=== PATIENT | female | born 1950 | race African-American/Black ===

== ENCOUNTER 2017-05-23 12:20 | Inpatient (IN) ==
--- NOTE | 2017-05-23 13:52 | XRay Report ---
Exam: XR chest 1V portable Date: 05/23/2017 1:26 PM Indication: Shortness of breath Comparison: 04/15/2016 Technical:AP portable Findings: Cardiomegaly is present. No obvious infiltrate or effusion present. Mild interstitial thickening and atelectatic change in the basilar regions with suggestion of small tiny left pleural effusion. Impression: 1. Cardiomegaly 2. Tiny left effusion and underlying bibasilar atelectatic change and/or edema. PROCEDURE INTERPRETED AT [facility] DEPARTMENT OF RADIOLOGY Final Report Signed by: Dr. Micheal Mccullough
--- NOTE | 2017-05-23 13:54 | EKG Report ---
Stationary ECG Study [facility] ER Test Date: 05/23/2017 1:52:49 PM Pat Name: VALE AZEVEDO Department: Room: Gender: F Multifocal Button Generator: : 1950 Requested by: Caleb Rios Order Number: [id number] Reading MD: MORGAN PATTEN Intervals [place] Rate: 75 P: 69 MD: 198 QRS: 6 QRSD: 88 T: 58 QT: 393 QTc: 422 Interpretive Statements SINUS RHYTHM ANTEROSEPTAL MYOCARDIAL INFARCTION, OF INDETERMINATE AGE Electronically Signed On 05-23-17 17:42:38 CDT by MORGAN PATTEN [email or web address]
--- NOTE | 2017-05-23 14:05 | Emergency Department Note ---
James Campoverde Rolonda, am scribing for, and in the presence of, Caleb Carmona MD 13:35. Mathew Campoverde Phillip K, MD, personally performed the services described in this documentation, ascribed by Heaven Ramirez in my presence, and it is both accurate and complete [id number] . Arrival - Arrival Chief Complaint: Non-Specific ED Nursing Triage Note: pt to er 11 via ems coming from [facility] with c/o having low H & H. pt has blood drawn and results given to [place] on at 0906. and is coming today for it. Mode of Arrival: Stretcher Limitations: No Limitations Source: Patient, Old Records Reviewed, RN Notes Reviewed Time Seen by Provider: 05/23/17 13:14 - History of Present Illness HPI Narrative: Pt is a 66 y/o female who was transferred to the ED from [facility] via EMS for further evaluation of low H&H with an onset of few hours ago. She had blood work done on 05/22/2017 at [place] with results of H&H being 6 and 20 which prompted her visit to the ED. Pt denies any pain and SOB. Pt has a PMHx of CVA, Anemia, DM, ESRD and dialyze on ,W,F. No other complaint/pain in ED. Onset (ago): hour(s) Consistency: constant Severity: mild Severity scale (1-10): 3 Allergies/Adverse Reactions: Allergies Allergy/AdvReac Type Severity Reaction Status Date / Time acetaminophen [From [place]] Allergy RASH Verified 05/23/17 12:37 hydrocodone [From [place]] Allergy RASH Verified 05/23/17 12:37 Hydromorphone [From Dilaudid] AdvReac Nausea Verified 05/23/17 12:37 Home Medications: Home Medications Medication Instructions Recorded Confirmed Type Clopidogrel [Plavix] 75 mg PO DAILY tablet 05/14/15 07/29/16 Rx Diltiazem Tab [Cardizem Tab] 60 mg PO QID tablet 05/14/15 07/29/16 Rx predniSONE TAB [PredniSONE] 10 mg PO DAILY tablet 05/14/15 07/29/16 Rx Cholestyramine/Aspartame [Questran 4 gm PO BID 01/22/16 07/29/16 History Light] Famotidine 20 mg PO BID 01/22/16 07/29/16 History Insulin Regular, Human [NovoLIN R] See Protocol SUBCUT ACHS 01/22/16 06/10/16 History Escitalopram Oxalate 20 mg PO DAILY 07/29/16 07/29/16 History Promethazine Tab [Phenergan Tab] 25 mg PO Q4H PRN 07/29/16 07/29/16 History traMADol TAB [Ultram] 100 mg PO Q6H PRN 07/29/16 07/29/16 History Review of System - Review of System 12 point system: reviewed and no additional remarkable complaints except as stated - Review of System Constitutional: Absent: chills, fever Respiratory: Absent: cough, respiratory distress Cardiovascular: Absent: chest pain, dyspnea on exertion Gastrointestinal: Absent: abdominal pain, nausea, vomiting, diarrhea Musculoskeletal: Absent: back pain, neck pain Medical,Surgical,& Family Hx - Medical History Cardio: History of: Cardiac Dysrhythmia (ATRIAL FIBRILLATION), Hypertension, PVD Comment Only: Cardiovascular Problems (A FIB) Psychological: History of: Anxiety Disorders, Depression Neurology: History of: Cerebrovascular Accident, Peripheral Neuropathy No history of: Seizures HEENT: History of: Eye Problem (BLIND) Endocrine: History of: Diabetes Mellitus (IDDM), Diabetes Mellitus (NIDDM), Dyslipidemia Rheumatology: History of;: Gout (LEFT FOOT), Rheumatoid Arthritis (RIGHT HAND) Renal: History of: Dialysis (mon and mon), Renal Failure Gastrointestinal: History of: GI Problems (CONSTIPATION) Musculoskeletal: History of: Amputation (LEFT ABOVE KNEE AMP, RIGHT BELOW KNEE) Hematology: History of: Bleeding Problems (HEMOPHYLLIAC) Other: History of: Eczema, Skin Problems (Decubitus ulcers) - Surgical History Cardiac Surgeries: Sugical HX of: Cardiac Surgery (LEFT LEG ARTERIAL SURGERY) HEENT Surgeries: Surgical HX of: Eye Surgery (CATARACT BILLTERAL) Abdominal Surgeries: Surgical HX of: Abdominal Surgery, Appendectomy Reproductive Surgeries: Surgical HX of;: Section (1), Gynecologic Surgery, Hysterectomy Orthopedic Surgeries: Surgical HX of;: Implanted Devices (FISTULA IN LEFT AND RIGHT LEG LEFT NOT FUNCTIONAL) - Family History Family History: Reports;: Family Anesthesia Reaction (DAUGHTER- TACHYCARDIA), Family Cancer, Family Diabetes (MOTHER AND FATHER), Family Heart Disease, Family Hypertension (FATHER), Family Stroke (DAD MOTHER) - Social History Smoking Status: Never smoker Frequency of Alcohol Use: None Type of Drug Use: None Exam Vital Signs: Vital Signs Temperature 97.5 F L 05/23/17 12:26 Pulse Rate 74 05/23/17 12:26 Respiratory Rate 17 05/23/17 12:41 Blood Pressure 164/63 05/23/17 12:26 O2 Sat by Pulse Oximetry 95 05/23/17 12:26 - General General appearance: alert, in no apparent distress - Head Head exam: Present: atraumatic, normocephalic - Eye Eye exam: Present: normal appearance, PERRL, EOMI - ENT ENT exam: Present: mucous membranes moist. Absent: mucous membranes dry - Neck Neck exam: Present: full ROM. Absent: tenderness - Chest Chest inspection: Present: symmetric chest wall rise. Absent: tenderness - Respiratory Respiratory exam: Present: normal lung sounds bilaterally. Absent: rales - Cardiovascular Cardiovascular exam: Present: regular rate, normal rhythm, normal heart sounds. Absent: bradycardia - Abdominal Exam Abdominal exam: Present: soft, normal bowel sounds. Absent: tenderness - Rectal Exam Rectal exam: Present: heme (+) stool - Extremities Exam Extremities exam: Present: other (left leg AKA, right leg BKA) - Back Exam Back exam: Present: full ROM. Absent: tenderness - Neurological Exam Neurological exam: Present: alert, oriented X3, CN II-XII intact, other (left sided facial weakness; forehead sparing) - Psychiatric Psychiatric exam: Present: normal affect, normal mood - Skin Skin exam: Present: warm, dry, intact, normal color. Absent: rash Course Course Narrative: Patient discussed with the hospitalist Results - Labs CBC & BMP: 05/23/17 14:03 05/23/17 14:03 Lab Results: I have reviewed the patients labs - EKG EKG results: interpreted by EVA, sinus rhythm (Old anterior septal MN) - Diagnostic Findings Procedure: Chest x-ray: report reviewed by me (1. Cardiomegaly 2. Tiny left effusion and underlying bibasilar atelectatic change and/or edema.) Disposition Clinical Impression: Anemia, Heme positive stool Case discussed with: patient Disposition: Still a Patient Condition: Guarded Additional Instructions: Admit to the hospitalist
[2017-05-23 14:18] LABS: Basophils % 0.2 % (0.0-0.8); Eosinophils # 0.1 10*3/uL (0.0-0.87); Hematocrit 20.3 VOL% (35.7-47.0); Immature Granulocytes % 0.6 %; Immature Granulocytes Absolute 0.03 #; Lymphocytes # 1.9 10*3/uL (1.4-4.0); Lymphocytes % 36.7 % (21.3-54.2); Mean Corpuscular HGB Conc 31.5 GM/DL (32-36); Mean Corpuscular Hemoglobin 31 PG (27-34); Mean Corpuscular Volume 97.1 FL (87-102); Mean Platelet Volume 10.8 FL (9.6-12.0); Monocytes # 0.3 10*3/uL (0.11-0.8); Monocytes % 4.9 % (1.7-12.7); NRBC # 0.09 10*3/uL; Neutrophils # 2.8 10*3/uL (1.4-7.4); Neutrophils % 55.6 % (38.7-73.9); Platelet Count 128 T/CUMM (130-400); Red Blood Count 2.09 MC/CUMM (3.8-5.5); Red Cell Distribution Width 19.9 % (9.3-17.3); White Blood Count 5.1 T/CUMM (4-12)
[2017-05-23 14:28] LABS: Hemoglobin 6.4 GM/DL (12.0-16.0)
[2017-05-23 14:43] LABS: Alanine Aminotransferase 21 U/L (13-56); Albumin 2.8 G/DL (3.4-5.0); Alkaline Phosphatase 137 U/L (45-117); Aspartate Amino Transferase 28 U/L (0-37); Bilirubin,Total < 0.39 MG/DL (0.2-1.0); Blood Urea Nitrogen 31 MG/DL (7-18); Glucose 172 MG/DL (74-106); Magnesium 2.5 MG/DL (1.8-2.4); Osmolality,Calculated 280.1 MOS/KG (273-304); Potassium 3.7 MMOL/L (3.5-5.1); Sodium 135 MMOL/L (136-145); Total Protein 6.5 G/DL (6.4-8.3)
[2017-05-23] MEDS ORDERED: SODIUM CHLORIDE 0.9% 250 ML IV PRN (14:49)
--- NOTE | 2017-05-23 15:56 | Hospitalist History & Physical ---
<Brinda Grayda - Last Filed: 05/23/17 15:46> Assessment and Plan (1) Anemia Status: Acute Assessment and plan: Hemoglobin and hematocrit were noted at 6.4 and 20.3. The patient is chronically anemic secondary to her end-stage renal disease; however the patient does take Plavix which could possibly attributed to the noted decrease in her blood levels. We will hold Plavix. We will consult nephrology to evaluate and advise regarding transfusion to prevent fluid volume overload. Current Visit: Yes (2) Diabetes mellitus Status: Chronic Assessment and plan: We will start Accu-Cheks with sliding scale coverage; obtain hemoglobin A1c, and monitor. Current Visit: No Qualifiers: Diabetes mellitus type: type 2 Diabetes mellitus complication detail: with other kidney complication (3) End stage renal disease on dialysis Problem details: No acute indication for HD at this time. Status: Chronic Assessment and plan: Consult nephrology to manage. Current Visit: No (4) PEG (percutaneous endoscopic gastrostomy) status Status: Acute Assessment and plan: Tube feedings will remain on hold until GI evaluation. Current Visit: Yes (5) Heme positive stool Status: Acute Assessment and plan: Heme-positive stools noted; we will hold Plavix. We will consult GI to evaluate. Will start PPIs. Current Visit: Yes History of Present Illness Chief complaint: Anemia History of present illness: This is a chronically ill 66-year-old female that presented to the ED at [facility] this afternoon from [facility] for the evaluation of anemia. The patient has a very complex medical history significant for: Cerebrovascular accident, anemia, diabetes mellitus, end-stage renal disease, hypertension, peripheral vascular disease, atrial fibrillation, anxiety disorder, depression, peripheral neuropathy, gouty arthritis, chronic constipation, dysphasia, chronic multiple decubitus ulcerations. The patient has a surgical history significant for: Right below the knee amputation, left [id number] amputation, bilateral cataract removal , appendectomy, percutaneous gastrostomy tube placement, hysterectomy, section, and arteriovenous graft creation. Apparently, the patient had labs drawn at the custodial facility on yesterday. The facility received the results today and her hemoglobin was noted at 6.4/20.3. The patient was was assessed at the time of ED presentation; labs were obtained. Hematology panel reported white blood cell count of 5.1, hemoglobin 6.4, hematocrit 20.3, platelet count 128. Chemistry panel reported a sodium at 135, potassium 3.7, chloride 95, carbon dioxide 31, anion gap 12.7, BUN 31, creatinine 2.80, magnesium 2.5, total bilirubin less than 039, alkaline phosphatase 137, albumin 2.8, AST 28, ALT 21. Chest x-ray reported cardiomegaly and tiny left effusion and underlying by basilic atelectatic change and/or edema. After brief discussion with both Dr. Carmona and Dr. Callahan, the patient will be admitted to the hospitalist services for continuation of care. We will consult nephrology to assist in the management of her hemodialysis during the clinical encounter. Home Medications Medication Instructions Recorded Confirmed Type Cholestyramine/Aspartame [Questran 4 gm PER TUBE DAILY PRN 01/22/16 05/23/17 History Light] Famotidine 20 mg PER TUBE BID 01/22/16 05/23/17 History Insulin Regular, Human [NovoLIN R] See Protocol SUBCUT ACHS 01/22/16 05/23/17 History Promethazine Tab [Phenergan Tab] 25 mg PER TUBE Q4H PRN 07/29/16 05/23/17 History traMADol TAB [Ultram] 50 mg PER TUBE Q6H PRN 07/29/16 05/23/17 History Acetaminophen Tab [Tylenol Tab] 325 mg PER TUBE Q4H PRN 05/23/17 05/23/17 History Albuterol/Ipratropium Neb [Duoneb] 3 ml RESP TX RT Q4H PRN 05/23/17 05/23/17 History Clopidogrel [Plavix] 75 mg PER TUBE DAILY 05/23/17 05/23/17 History Diltiazem Tab [Cardizem Tab] 60 mg PER TUBE Q6H 05/23/17 05/23/17 History Escitalopram Oxalate 20 mg PER TUBE DAILY 05/23/17 05/23/17 History Furosemide Tab [Lasix Tab] 20 mg PER TUBE BID 05/23/17 05/23/17 History Potassium Chloride 10 meq PER TUBE DAILY 05/23/17 05/23/17 History predniSONE TAB [PredniSONE] 10 mg PER TUBE DAILY 05/23/17 05/23/17 History Allergies Allergy/AdvReac Type Severity Reaction Status Date / Time acetaminophen [From [place]] Allergy RASH Verified 05/23/17 12:37 hydrocodone [From [place]] Allergy RASH Verified 05/23/17 12:37 Hydromorphone [From Dilaudid] AdvReac Nausea Verified 05/23/17 12:37 Medical,Surgical,& Family Hx - Medical History Cardio: History of: Cardiac Dysrhythmia (ATRIAL FIBRILLATION), Hypertension, PVD Comment Only: Cardiovascular Problems (A FIB) Psychological: History of: Anxiety Disorders, Depression Neurology: History of: Cerebrovascular Accident, Peripheral Neuropathy No history of: Seizures HEENT: History of: Eye Problem (BLIND) Endocrine: History of: Diabetes Mellitus (IDDM), Diabetes Mellitus (NIDDM), Dyslipidemia Rheumatology: History of;: Gout (LEFT FOOT), Rheumatoid Arthritis (RIGHT HAND) Renal: History of: Dialysis (mon and mon), Renal Failure Gastrointestinal: History of: GI Problems (CONSTIPATION) Musculoskeletal: History of: Amputation (LEFT ABOVE KNEE AMP, RIGHT BELOW KNEE) Hematology: History of: Bleeding Problems (HEMOPHYLLIAC) Other: History of: Eczema, Skin Problems (Decubitus ulcers) - Surgical History Cardiac Surgeries: Sugical HX of: Cardiac Surgery (LEFT LEG ARTERIAL SURGERY) HEENT Surgeries: Surgical HX of: Eye Surgery (CATARACT BILLTERAL) Abdominal Surgeries: Surgical HX of: Abdominal Surgery, Appendectomy Reproductive Surgeries: Surgical HX of;: Section (1), Gynecologic Surgery, Hysterectomy Orthopedic Surgeries: Surgical HX of;: Implanted Devices (FISTULA IN LEFT AND RIGHT LEG LEFT NOT FUNCTIONAL) - Family History Family History: Reports;: Family Anesthesia Reaction (DAUGHTER- TACHYCARDIA), Family Cancer, Family Diabetes (MOTHER AND FATHER), Family Heart Disease, Family Hypertension (FATHER), Family Stroke (DAD MOTHER) - Social History Smoking Status: Never smoker Frequency of Alcohol Use: None Type of Drug Use: None 12 point system: reviewed and no additional remarkable complaints except as stated Exam - Constitutional Vitals: Period Temp Pulse Resp BP Sys/Jacinto Pulse Ox Last 24 Hr 97.5 F-97.5 F 74-74 17-17 164-164/63-63 95 General appearance: normal weight, no acute distress - Head Head exam: Present: normal inspection, normocephalic, atraumatic - Eye Eye exam: Present: EOMI. Absent: conjunctival injection Pupils: Present: IFTIKHAR, normal accommodation - ENT ENT exam: Present: normal exam, normal external ear exam, normal oropharynx - Neck Neck exam: Present: normal inspection. Absent: lymphadenopathy, meningismus, thyromegaly - Respiratory Respiratory exam: Present: clear to auscultation bilaterally. Absent: rales, rhonchi, stridor, wheezes - Cardiovascular Cardiovascular exam: Present: regular rate and rhythm. Absent: carotid bruit, diastolic murmur, gallop, JVD, rubs, systolic murmur - GI/Abdominal GI/Abdominal exam: Present: normal bowel sounds, soft - Extremities Exam Extremities exam: Present: other (Bilateral amputation noted; left upper extremity contractures) - Back Exam Back exam: Present: normal inspection - Neurological Exam Neurological exam: Present: alert, other (Nonverbal) - Psychiatric Psychiatric exam: Present: normal affect - Skin Skin exam: Present: normal color, warm, dry Results - Labs CBC & BMP: 05/23/17 14:03 05/23/17 14:03 Lab Results: I have reviewed the past 24 hour labs <Leona Callahan - Last Filed: 05/23/17 16:58> History of Present Illness History of present illness: Patient seen and examined independently of BRI Gray, agree with history, assessment and plan as documented. 66 y/o AAF with ESRD admitted with anemia discovered on routine labs. Per reports patient is heme occult positive, not seeing this in the system. Will order FOBT. Monitor H/H. Will transfuse one unit overnight. Recheck H/H. Possibly further transfusions on HD. Nephrology consulted. Exam - Constitutional Vitals: Period Temp Pulse Resp BP Sys/Jacinto Pulse Ox Last 24 Hr 97.5 F-98.4 F 74-76 - 164-166/63-63 95-100 Results - Labs CBC & BMP: 05/23/17 14:03 05/23/17 14:03
[2017-05-23 16:24] LABS: Band Neutrophils 1 % (0-10); Eosinophils 1 % (0-10); Lymphocytes 31 % (20-55); Nucleated Red Blood Cells 3 (0-5); Platelet Estimate Normal; Polychromasia Slight; Segmented Neutrophils 61 % (50-85); Total Cells Counted 100
[2017-05-23] MEDS ORDERED: ONDANSETRON 4 MG/2 ML VIAL IV PRN (18:51)
[2017-05-23] MEDS ORDERED: traMADol 50 MG TABLET PER TUBE PRN (18:51)
[2017-05-23] MEDS ORDERED: CHOLESTYRAMINE/ASPARTAME 4 GM PACK PER TUBE PRN (18:51)
[2017-05-23] MEDS ORDERED: PROMETHAZINE 25 MG TABLET PER TUBE PRN (18:51)
[2017-05-23] MEDS ORDERED: DOCUSATE SODIUM 100 MG CAPSULE PO PRN (18:51)
[2017-05-23] MEDS ORDERED: LACTULOSE 20 GM/30 ML UDCUP PO PRN (18:51)
[2017-05-23] MEDS ORDERED: ALBUTEROL/IPRATROPIUM 3 ML NEB RESP TX PRN (18:51)
[2017-05-23] MEDS ORDERED: ACETAMINOPHEN 325 MG TABLET PER TUBE PRN (18:51)
[2017-05-23] MEDS ORDERED: PANTOPRAZOLE INJ 200 MG in SODIUM CHLORIDE 0.9% 250 ML IV SCH (20:00)
[2017-05-23] MEDS: DILTIAZEM 60 MG TABLET PO SCH (20:30)
[2017-05-23] MEDS: FUROSEMIDE 20 MG TABLET PER TUBE SCH (23:18)
[2017-05-23] MEDS: FAMOTIDINE 20 MG TABLET PER TUBE SCH (23:19)
[2017-05-24] MEDS: DILTIAZEM 60 MG TABLET PO SCH ×4 (00:30→18:19)
[2017-05-24 05:25] LABS: Basophils % 0.4 % (0.0-0.8); Eosinophils # 0.3 10*3/uL (0.0-0.87); Eosinophils % 3.9 % (0.00-10.9); Hemoglobin 8.9 GM/DL (12.0-16.0); Immature Granulocytes % 0.6 %; Immature Granulocytes Absolute 0.04 #; Lymphocytes # 2.1 10*3/uL (1.4-4.0); Lymphocytes % 31.2 % (21.3-54.2); Mean Corpuscular HGB Conc 31.8 GM/DL (32-36); Mean Corpuscular Hemoglobin 29 PG (27-34); Mean Corpuscular Volume 90.9 FL (87-102); Mean Platelet Volume 10.7 FL (9.6-12.0); Monocytes # 0.7 10*3/uL (0.11-0.8); Monocytes % 9.5 % (1.7-12.7); NRBC # 0.04 10*3/uL; Neutrophils # 3.7 10*3/uL (1.4-7.4); Neutrophils % 54.4 % (38.7-73.9); Platelet Count 264 T/CUMM (130-400); Red Blood Count 3.08 MC/CUMM (3.8-5.5); Red Cell Distribution Width 24.6 % (9.3-17.3); White Blood Count 6.9 T/CUMM (4-12)
[2017-05-24 05:45] LABS: Anisocytosis 1+; Hypochromasia 1+; Microcytosis 1+; Platelet Estimate Normal; Polychromasia Few
[2017-05-24 06:01] LABS: Calcium 9.2 MG/DL (8.5-10.1); Magnesium 2.6 MG/DL (1.8-2.4); Osmolality,Calculated 280.8 MOS/KG (273-304); Potassium 3.5 MMOL/L (3.5-5.1)
--- NOTE | 2017-05-24 09:31 | Nephrology Consult Note ---
History of Present Illness Chief complaint: End-stage renal disease, anemia History of present illness: Ms. Lynch is a 66 year old female with multiple medical problems to include diabetes end-stage renal disease history of peripheral vascular disease decubiti anemia atrial fibrillation. The patient is a resident of a local nursing facility and had evidence of anemia by blood drawn yesterday. She has been admitted for further evaluation and treatment of anemia. Her last hematocrit was noted to be 28. Nephrology is been consulted for renal issues. No fevers or chills. Home Medications Medication Instructions Recorded Confirmed Type Cholestyramine/Aspartame [Questran 4 gm PER TUBE DAILY PRN 01/22/16 05/23/17 History Light] Famotidine 20 mg PER TUBE BID 01/22/16 05/23/17 History Insulin Regular, Human [NovoLIN R] See Protocol SUBCUT ACHS 01/22/16 05/23/17 History Promethazine Tab [Phenergan Tab] 25 mg PER TUBE Q4H PRN 07/29/16 05/23/17 History traMADol TAB [Ultram] 50 mg PER TUBE Q6H PRN 07/29/16 05/23/17 History Acetaminophen Tab [Tylenol Tab] 325 mg PER TUBE Q4H PRN 05/23/17 05/23/17 History Albuterol/Ipratropium Neb [Duoneb] 3 ml RESP TX RT Q4H PRN 05/23/17 05/23/17 History Clopidogrel [Plavix] 75 mg PER TUBE DAILY 05/23/17 05/23/17 History Diltiazem Tab [Cardizem Tab] 60 mg PER TUBE Q6H 05/23/17 05/23/17 History Escitalopram Oxalate 20 mg PER TUBE DAILY 05/23/17 05/23/17 History Furosemide Tab [Lasix Tab] 20 mg PER TUBE BID 05/23/17 05/23/17 History Potassium Chloride 10 meq PER TUBE DAILY 05/23/17 05/23/17 History predniSONE TAB [PredniSONE] 10 mg PER TUBE DAILY 05/23/17 05/23/17 History Allergies Allergy/AdvReac Type Severity Reaction Status Date / Time acetaminophen [From [place]] Allergy RASH Verified 05/23/17 12:37 hydrocodone [From [place]] Allergy RASH Verified 05/23/17 12:37 Hydromorphone [From Dilaud[place]] AdvReac Nausea Verified 05/23/17 12:37 Medical,Surgical,& Family Hx - Medical History Cardio: History of: Cardiac Dysrhythmia (ATRIAL FIBRILLATION), Hypertension, PVD Comment Only: Cardiovascular Problems (A FIB) Psychological: History of: Anxiety Disorders, Depression Neurology: History of: Cerebrovascular Accident, Peripheral Neuropathy No history of: Seizures HEENT: History of: Eye Problem (BLIND) Endocrine: History of: Diabetes Mellitus (IDDM), Diabetes Mellitus (NIDDM), Dyslipidemia Rheumatology: History of;: Gout (LEFT FOOT), Rheumatoid Arthritis (RIGHT HAND) Renal: History of: Dialysis (mon and mon), Renal Failure Gastrointestinal: History of: GI Problems (CONSTIPATION) Musculoskeletal: History of: Amputation (LEFT ABOVE KNEE AMP, RIGHT BELOW KNEE) Hematology: History of: Bleeding Problems (HEMOPHYLLIAC) Other: History of: Eczema, Skin Problems (Decubitus ulcers) - Surgical History Cardiac Surgeries: Sugical HX of: Cardiac Surgery (LEFT LEG ARTERIAL SURGERY) HEENT Surgeries: Surgical HX of: Eye Surgery (CATARACT BILLTERAL) Abdominal Surgeries: Surgical HX of: Abdominal Surgery, Appendectomy Reproductive Surgeries: Surgical HX of;: Section (1), Gynecologic Surgery, Hysterectomy Orthopedic Surgeries: Surgical HX of;: Implanted Devices (FISTULA IN LEFT AND RIGHT LEG LEFT NOT FUNCTIONAL) - Family History Family History: Reports;: Family Anesthesia Reaction (DAUGHTER- TACHYCARDIA), Family Cancer, Family Diabetes (MOTHER AND FATHER), Family Heart Disease, Family Hypertension (FATHER), Family Stroke (DAD MOTHER) - Social History Smoking Status: Never smoker Frequency of Alcohol Use: None Type of Drug Use: None Review of Systems ROS unobtainable: due to mental status Exam - Vital Signs Vital signs: Period Temp Pulse Resp BP Sys/Jacinto Pulse Ox Last 24 Hr 97.5 F-98.4 F 74-82 16-20 161-173/59-64 95-100 - General Appearance General appearance: chronically ill, fatigue, frail EENT: ATNC Neck: supple Respiratory: clear Cardiology: regular rate, irregular rhythm Gastrointestinal: normoactive bowel sounds, no tenderness Musculoskeletal: deformities (Bilateral amputation of lower extremity) Psychiatric: depressed Results - Labs CBC & BMP: 05/24/17 05:09 05/24/17 05:09 Assessment and Plan (1) End stage renal disease on dialysis Problem details: No acute indication for HD at this time. Status: Chronic Current Visit: No (2) Paroxysmal atrial fibrillation Status: Chronic Current Visit: No (3) Anemia Status: Chronic Current Visit: No Qualifiers: Anemia type: iron deficiency anemia due to chronic blood loss (4) Diabetes Status: Chronic Current Visit: No Qualifiers: Diabetes mellitus type: type 2 Diabetes mellitus complication detail: with other kidney complication (5) Hypotension Status: Resolved Current Visit: No (6) History of stroke Status: Chronic Current Visit: No (7) History of lower limb amputation Status: Chronic Current Visit: No (8) Cerebrovascular accident Status: Chronic Current Visit: No (9) Diabetes mellitus Status: Chronic Current Visit: No Qualifiers: Diabetes mellitus type: type 2 Diabetes mellitus complication detail: with other kidney complication (10) Anemia Status: Acute Assessment and plan: We will give 2 units packed red blood cells on dialysis today. Current Visit: Yes (11) PEG (percutaneous endoscopic gastrostomy) status Status: Acute Current Visit: Yes
--- NOTE | 2017-05-24 09:33 | Hospitalist History & Physical ---
Assessment and Plan (1) Anemia Status: Acute Assessment and plan: Hemoglobin and hematocrit were noted at 6.4 and 20.3. The patient is chronically anemic secondary to her end-stage renal disease; however the patient does take Plavix which could possibly attributed to the noted decrease in her blood levels. We will hold Plavix. We will consult nephrology to evaluate and advise regarding transfusion to prevent fluid volume overload. Current Visit: Yes (2) Diabetes mellitus Status: Chronic Assessment and plan: We will start Accu-Cheks with sliding scale coverage; obtain hemoglobin A1c, and monitor. Current Visit: No (3) End stage renal disease on dialysis Problem details: No acute indication for HD at this time. Status: Chronic Assessment and plan: Consult nephrology to manage. Current Visit: No (4) PEG (percutaneous endoscopic gastrostomy) status Status: Acute Assessment and plan: Tube feedings will remain on hold until GI evaluation. Current Visit: Yes (5) Heme positive stool Status: Acute Assessment and plan: Heme-positive stools noted; we will hold Plavix. We will consult GI to evaluate. Will start PPIs. Current Visit: Yes History of Present Illness History of present illness: Ms. Lynch is a 66 year old female Home Medications Medication Instructions Recorded Confirmed Type Cholestyramine/Aspartame [Questran 4 gm PER TUBE DAILY PRN 01/22/16 05/23/17 History Light] Famotidine 20 mg PER TUBE BID 01/22/16 05/23/17 History Insulin Regular, Human [NovoLIN R] See Protocol SUBCUT ACHS 01/22/16 05/23/17 History Promethazine Tab [Phenergan Tab] 25 mg PER TUBE Q4H PRN 07/29/16 05/23/17 History traMADol TAB [Ultram] 50 mg PER TUBE Q6H PRN 07/29/16 05/23/17 History Acetaminophen Tab [Tylenol Tab] 325 mg PER TUBE Q4H PRN 05/23/17 05/23/17 History Albuterol/Ipratropium Neb [Duoneb] 3 ml RESP TX RT Q4H PRN 05/23/17 05/23/17 History Clopidogrel [Plavix] 75 mg PER TUBE DAILY 05/23/17 05/23/17 History Diltiazem Tab [Cardizem Tab] 60 mg PER TUBE Q6H 05/23/17 05/23/17 History Escitalopram Oxalate 20 mg PER TUBE DAILY 05/23/17 05/23/17 History Furosemide Tab [Lasix Tab] 20 mg PER TUBE BID 05/23/17 05/23/17 History Potassium Chloride 10 meq PER TUBE DAILY 05/23/17 05/23/17 History predniSONE TAB [PredniSONE] 10 mg PER TUBE DAILY 05/23/17 05/23/17 History Allergies Allergy/AdvReac Type Severity Reaction Status Date / Time acetaminophen [From [place]] Allergy RASH Verified 05/23/17 12:37 hydrocodone [From [place]] Allergy RASH Verified 05/23/17 12:37 Hydromorphone [From Dilaudid] AdvReac Nausea Verified 05/23/17 12:37 Medical,Surgical,& Family Hx - Medical History Cardio: History of: Cardiac Dysrhythmia (ATRIAL FIBRILLATION), Hypertension, PVD Comment Only: Cardiovascular Problems (A FIB) Psychological: History of: Anxiety Disorders, Depression Neurology: History of: Cerebrovascular Accident, Peripheral Neuropathy No history of: Seizures HEENT: History of: Eye Problem (BLIND) Endocrine: History of: Diabetes Mellitus (IDDM), Diabetes Mellitus (NIDDM), Dyslipidemia Rheumatology: History of;: Gout (LEFT FOOT), Rheumatoid Arthritis (RIGHT HAND) Renal: History of: Dialysis (mon and mon), Renal Failure Gastrointestinal: History of: GI Problems (CONSTIPATION) Musculoskeletal: History of: Amputation (LEFT ABOVE KNEE AMP, RIGHT BELOW KNEE) Hematology: History of: Bleeding Problems (HEMOPHYLLIAC) Other: History of: Eczema, Skin Problems (Decubitus ulcers) - Surgical History Cardiac Surgeries: Sugical HX of: Cardiac Surgery (LEFT LEG ARTERIAL SURGERY) HEENT Surgeries: Surgical HX of: Eye Surgery (CATARACT BILLTERAL) Abdominal Surgeries: Surgical HX of: Abdominal Surgery, Appendectomy Reproductive Surgeries: Surgical HX of;: Section (1), Gynecologic Surgery, Hysterectomy Orthopedic Surgeries: Surgical HX of;: Implanted Devices (FISTULA IN LEFT AND RIGHT LEG LEFT NOT FUNCTIONAL) - Family History Family History: Reports;: Family Anesthesia Reaction (DAUGHTER- TACHYCARDIA), Family Cancer, Family Diabetes (MOTHER AND FATHER), Family Heart Disease, Family Hypertension (FATHER), Family Stroke (DAD MOTHER) - Social History Smoking Status: Never smoker Frequency of Alcohol Use: None Type of Drug Use: None Exam - Constitutional Vitals: Period Temp Pulse Resp BP Sys/Jacinto Pulse Ox Last 24 Hr 97.5 F-98.4 F 74-82 16-20 161-173/59-64 95-100 Results - Labs CBC & BMP: 05/24/17 05:09 05/24/17 05:09 Quality Measures - VTE Contraindication to Pharmacological VTE Prophylaxis: High Risk of Bleeding
--- NOTE | 2017-05-24 09:35 | Hospitalist Progress Note ---
<Brinda Grayda - Last Filed: 05/24/17 09:33> Assessment and Plan (1) Anemia Status: Acute Assessment and plan: 05/23-Hemoglobin and hematocrit noted at 6.4 and 20.3 at the time of ED presentation. We will transfused 1 unit of packed red blood cells and recheck H &H in a.m. 05/24-Hemoglobin and hematocrit improved; noted at 8.9 at 28.0; which is significantly increased from 6.9 and 20.3 at admission. Current Visit: Yes (2) Diabetes mellitus Status: Chronic Assessment and plan: We will start Accu-Cheks with sliding scale coverage. Current Visit: No Qualifiers: Diabetes mellitus type: type 2 Diabetes mellitus complication detail: with other kidney complication (3) End stage renal disease on dialysis Problem details: No acute indication for HD at this time. Status: Chronic Assessment and plan: Nephrology to manage. Current Visit: No (4) PEG (percutaneous endoscopic gastrostomy) status Status: Acute Assessment and plan: Enteral feedings on hold pending GI evaluation. Current Visit: Yes (5) Heme positive stool Status: Acute Assessment and plan: Heme positive stool noted at the time of ED presentation. We will consult GI to evaluate and advise. Current Visit: Yes Hospitalist: Subjective Interval history: Patient seen and examined; chart review. No significant changes overnight reported per staff. Transfuse 1 unit of packed red blood cells on last night; noted improvement in H&H; H&H up to 8.9 and 20.0. Hemodialysis this morning per nephrology. Exam - Constitutional Vitals: Period Temp Pulse Resp BP Sys/Jacinto Pulse Ox Last 24 Hr 97.5 F-98.4 F 74-82 16-20 161-173/59-64 95-100 General appearance: normal weight, no acute distress - Head Head exam: Present: normal inspection, normocephalic, atraumatic - Eye Eye exam: Present: EOMI. Absent: conjunctival injection Pupils: Present: IFTIKHAR, normal accommodation - ENT ENT exam: Present: normal exam, normal external ear exam, normal oropharynx - Neck Neck exam: Present: normal inspection. Absent: lymphadenopathy, meningismus, tenderness, thyromegaly - Respiratory Respiratory exam: Present: clear to auscultation bilaterally. Absent: rales, rhonchi, stridor - Cardiovascular Cardiovascular exam: Present: regular rate and rhythm. Absent: carotid bruit, diastolic murmur, gallop, JVD, rubs, systolic murmur - GI/Abdominal GI/Abdominal exam: Present: normal bowel sounds, other (PEG tube noted). Absent : tenderness, rebound - Extremities Exam Extremities exam: Present: other (Contractures to the right upper extremity; bilateral lower extremity amputations) - Back Exam Back exam: Present: normal inspection - Neurological Exam Neurological exam: Present: alert, other (Aphasic) - Psychiatric Psychiatric exam: Present: normal affect, normal mood - Skin Skin exam: Present: normal color, warm, other (Sacral ulceration noted) Results - Labs CBC & BMP: 05/24/17 05:09 05/24/17 05:09 Lab Results: I have reviewed the past 24 hour labs Quality Measures - VTE Contraindication to Pharmacological VTE Prophylaxis: High Risk of Bleeding <Leona Callahan - Last Filed: 05/24/17 15:48> Hospitalist: Subjective Interval history: Patient seen and examined independently of BRI Gray, agree with assessment and plan as documented. HD today with transfusion. GI on board, plan for EGD tomorrow. Exam - Constitutional Vitals: Period Temp Pulse Resp BP Sys/Jacinto Pulse Ox Last 24 Hr 98.2 F-98.4 F 74-82 16-20 161-173/59-64 99-100 Results - Labs CBC & BMP: 05/24/17 05:09 05/24/17 05:09
[2017-05-24] MEDS: FAMOTIDINE 20 MG TABLET PER TUBE SCH ×2 (09:36→20:15)
[2017-05-24] MEDS: ESCITALOPRAM 10 MG TABLET PER TUBE SCH (09:36)
[2017-05-24] MEDS: FUROSEMIDE 20 MG TABLET PER TUBE SCH ×2 (09:36→20:15)
[2017-05-24] MEDS ORDERED: SODIUM CHLORIDE 0.9% 250 ML IV PRN ×2 (10:03→11:29)
--- NOTE | 2017-05-24 13:11 | Dialysis Note ---
Dialysis Note - Dialysis Note Patient seen on hemodialysis, she is tolerating this well will continue her treatment unchanged. Assessment/plan #1. End-stage renal disease-continue HD 2. Dementia
--- NOTE | 2017-05-24 13:35 | Gastrointestinal Consult Note ---
Assessment and Plan (1) Anemia Status: Acute Assessment and plan: This patient does have some guaiac positive stools and has anemia which is down from her usual 35% to 20.3% in the face of use of Plavix as an outpatient. We can certainly perform upper endoscopy which may demonstrate gastric erosions or ulcerations to explain the blood loss. We may take some biopsies for celiac sprue. I would like to avoid having to do colonoscopy on this patient if at all possible. Anemia certainly is multifactorial may have a lot to do with her underlying end-stage renal disease. She seems to be tolerating her food well and is not complaining of reflux at least when asking her yes/no questions and observing have movements provided the veracity of her answers is accurate. Will need to consent her family for an upcoming upper endoscopy tomorrow morning. Current Visit: Yes (2) Heme positive stool Status: Acute Assessment and plan: As noted above the patient may have underlying esophagitis, gastritis, duodenitis, AVMs, gastric cancer, colon cancer, potential AVMs for the rest of the bowel as possible differential of the blood loss. I do not see any recent endoscopic evaluation aside from the placement of the PEG tube back in September 2014. Current Visit: Yes (3) Dysphagia as late effect of cerebrovascular accident (CVA) Status: Acute Assessment and plan: Poststroke patient continues to require PEG tube for ongoing feeding, nutrition and hydration needs. If we see a contralateral ulceration from the current PEG tube with a balloon type internal balloon, we may have to switch this out for a more mucosal-friendly disc type tomorrow. Current Visit: No History of Present Illness Chief complaint: Possible melena (unverified), hematocrit down to 20.3%, end- stage renal dz History of present illness: Ms. Lynch is a 66 year old female who has had her original upper endoscopy with PEG tube placement after stroke done by Dr. Jose Bernabe back on 09/30/14, and has been seen on multiple occasions by me for PEG tube replacement at the bedside after self removal or deflation of the bulb is occurred and this has fallen out. The PEG tube remains in place at this time. The last time this was removed/replaced was back in on 04/19/16, and then again more recently on 07/29--although the tube that is in place now looks a little bit more recently placed than 10 months ago. The patient presents this admission with a decrease in her hematocrit from a baseline of 26-35% currently down to 20.3% this admission. The patient is not having any heartburn difficulties, no abdominal pain as related from head shaking. She does not know if she has had any melena she has not having diarrhea or constipation by report. Her weight seems stable. Creatinine yesterday was 2.8 and today is 3.4. She does have a variety of comorbidities including CVA anemia diabetes mellitus end-stage renal disease hypertension peripheral vascular disease atrial fibrillation depression peripheral anxiety gouty arthritis chronic constipation multiple decubitus ulcerations. She was sent here from [facility] presumably because of the black stools and the subsequent discovery of anemia with hematocrit at their institution of 20.3% hematocrit noted above at 20.3%. Unfortunately no rectal exam can be done at this time as the patient is in dialysis undergoing treatment. Will arrange for a quick upper endoscopy tomorrow in order to look for potential bleeding source. Apparently the patient had been kept on Plavix in the assisted along with potassium chloride and prednisone. I do not see a daily aspirin. Home Medications Medication Instructions Recorded Confirmed Type Cholestyramine/Aspartame [Questran 4 gm PER TUBE DAILY PRN 01/22/16 05/23/17 History Light] Famotidine 20 mg PER TUBE BID 01/22/16 05/23/17 History Insulin Regular, Human [NovoLIN R] See Protocol SUBCUT ACHS 01/22/16 05/23/17 History Promethazine Tab [Phenergan Tab] 25 mg PER TUBE Q4H PRN 07/29/16 05/23/17 History traMADol TAB [Ultram] 50 mg PER TUBE Q6H PRN 07/29/16 05/23/17 History Acetaminophen Tab [Tylenol Tab] 325 mg PER TUBE Q4H PRN 05/23/17 05/23/17 History Albuterol/Ipratropium Neb [Duoneb] 3 ml RESP TX RT Q4H PRN 05/23/17 05/23/17 History Clopidogrel [Plavix] 75 mg PER TUBE DAILY 05/23/17 05/23/17 History Diltiazem Tab [Cardizem Tab] 60 mg PER TUBE Q6H 05/23/17 05/23/17 History Escitalopram Oxalate 20 mg PER TUBE DAILY 05/23/17 05/23/17 History Furosemide Tab [Lasix Tab] 20 mg PER TUBE BID 05/23/17 05/23/17 History Potassium Chloride 10 meq PER TUBE DAILY 05/23/17 05/23/17 History predniSONE TAB [PredniSONE] 10 mg PER TUBE DAILY 05/23/17 05/23/17 History Allergies Allergy/AdvReac Type Severity Reaction Status Date / Time acetaminophen [From [place]] Allergy RASH Verified 05/23/17 12:37 hydrocodone [From [place]] Allergy RASH Verified 05/23/17 12:37 Hydromorphone [From Dilaudid] AdvReac Nausea Verified 05/23/17 12:37 Medical,Surgical,& Family Hx - Medical History Cardio: History of: Cardiac Dysrhythmia (ATRIAL FIBRILLATION), Hypertension, PVD Comment Only: Cardiovascular Problems (A FIB) Psychological: History of: Anxiety Disorders, Depression Neurology: History of: Cerebrovascular Accident, Peripheral Neuropathy No history of: Seizures HEENT: History of: Eye Problem (BLIND) Endocrine: History of: Diabetes Mellitus (IDDM), Diabetes Mellitus (NIDDM), Dyslipidemia Rheumatology: History of;: Gout (LEFT FOOT), Rheumatoid Arthritis (RIGHT HAND) Renal: History of: Dialysis (mon and mon), Renal Failure Gastrointestinal: History of: GI Problems (CONSTIPATION) Musculoskeletal: History of: Amputation (LEFT ABOVE KNEE AMP, RIGHT BELOW KNEE) Hematology: History of: Bleeding Problems (HEMOPHYLLIAC) Other: History of: Eczema, Skin Problems (Decubitus ulcers) - Surgical History Cardiac Surgeries: Sugical HX of: Cardiac Surgery (LEFT LEG ARTERIAL SURGERY) HEENT Surgeries: Surgical HX of: Eye Surgery (CATARACT BILLTERAL) Abdominal Surgeries: Surgical HX of: Abdominal Surgery, Appendectomy Reproductive Surgeries: Surgical HX of;: Section (1), Gynecologic Surgery, Hysterectomy Orthopedic Surgeries: Surgical HX of;: Implanted Devices (FISTULA IN LEFT AND RIGHT LEG LEFT NOT FUNCTIONAL) - Family History Family History: Reports;: Family Anesthesia Reaction (DAUGHTER- TACHYCARDIA), Family Cancer, Family Diabetes (MOTHER AND FATHER), Family Heart Disease, Family Hypertension (FATHER), Family Stroke (DAD MOTHER) - Social History Smoking Status: Never smoker Frequency of Alcohol Use: None Type of Drug Use: None ROS unobtainable: other Review of systems: Expressive aphasia, unable to talk. Exam - Constitutional Vitals: Period Temp Pulse Resp BP Sys/Jacinto Pulse Ox Last 24 Hr 98.2 F-98.4 F 74-82 16-20 161-173/59-64 99-100 General appearance: over weight - Eye Eye exam: Present: EOMI Pupils: Present: IFTIKHAR - Neck Neck exam: Absent: thyromegaly - Respiratory Respiratory exam: Present: clear to auscultation bilaterally. Absent: decreased breath sounds, rhonchi, stridor, wheezes - Cardiovascular Cardiovascular exam: Present: regular rate and rhythm - GI/Abdominal GI/Abdominal exam: Present: normal bowel sounds, soft, other (PEG tube located in the left upper abdomen, spends well, no drainage). Absent: distended, guarding, tenderness, rebound - Extremities Exam Extremities exam: Present: edema, other (Bilateral amputations are noted of the lower extremities) - Neurological Exam Neurological exam: Present: alert, altered (Expressive aphasia) - Psychiatric Psychiatric exam: Absent: agitated - Skin Skin exam: Present: warm Results - Labs CBC & BMP: 05/24/17 05:09 05/24/17 05:09 Quality Measures - VTE Contraindication to Mechanical VTE Prophylaxis: Bilateral Above the Knee Amputations
[2017-05-24] MEDS ORDERED: CHLORHEXIDINE 4% SOLN 118 ML BOTTLE TOP ONE (17:07)
--- NOTE | 2017-05-24 17:13 | General Surgery Consult Note ---
Assessment and Plan - Time spent with patient Time spent with patient: Greater than 30 minutes (1) End stage renal disease on dialysis Problem details: No acute indication for HD at this time. Status: Chronic Current Visit: No (2) Diabetes Status: Chronic Current Visit: No Qualifiers: Diabetes mellitus type: type 2 Diabetes mellitus complication detail: with other kidney complication (3) Anemia Status: Chronic Current Visit: No Qualifiers: Anemia type: iron deficiency anemia due to chronic blood loss (4) Decubitus ulcer of sacral region, stage 3 Status: Acute Assessment and plan: Impression: Stage 3 sacral decubitus ulcer Plan wound care. Current Visit: Yes History of Present Illness Chief complaint: Sacral ulcer History of present illness: Ms. Lynch is a 66 year old female Diabetic CRF with sacral ulcer. It is stage 3 and has been followed by me [facility]. It has made little progress due to her general condition. will resume wound care while she is here. Home Medications Medication Instructions Recorded Confirmed Type Cholestyramine/Aspartame [Questran 4 gm PER TUBE DAILY PRN 01/22/16 05/23/17 History Light] Famotidine 20 mg PER TUBE BID 01/22/16 05/23/17 History Insulin Regular, Human [NovoLIN R] See Protocol SUBCUT ACHS 01/22/16 05/23/17 History Promethazine Tab [Phenergan Tab] 25 mg PER TUBE Q4H PRN 07/29/16 05/23/17 History traMADol TAB [Ultram] 50 mg PER TUBE Q6H PRN 07/29/16 05/23/17 History Acetaminophen Tab [Tylenol Tab] 325 mg PER TUBE Q4H PRN 05/23/17 05/23/17 History Albuterol/Ipratropium Neb [Duoneb] 3 ml RESP TX RT Q4H PRN 05/23/17 05/23/17 History Clopidogrel [Plavix] 75 mg PER TUBE DAILY 05/23/17 05/23/17 History Diltiazem Tab [Cardizem Tab] 60 mg PER TUBE Q6H 05/23/17 05/23/17 History Escitalopram Oxalate 20 mg PER TUBE DAILY 05/23/17 05/23/17 History Furosemide Tab [Lasix Tab] 20 mg PER TUBE BID 05/23/17 05/23/17 History Potassium Chloride 10 meq PER TUBE DAILY 05/23/17 05/23/17 History predniSONE TAB [PredniSONE] 10 mg PER TUBE DAILY 05/23/17 05/23/17 History Allergies Allergy/AdvReac Type Severity Reaction Status Date / Time acetaminophen [From [place]] Allergy RASH Verified 05/23/17 12:37 hydrocodone [From [place]] Allergy RASH Verified 05/23/17 12:37 Hydromorphone [From Dilaudid] AdvReac Nausea Verified 05/23/17 12:37 Medical,Surgical,& Family Hx - Medical History Cardio: History of: Cardiac Dysrhythmia (ATRIAL FIBRILLATION), Hypertension, PVD Comment Only: Cardiovascular Problems (A FIB) Psychological: History of: Anxiety Disorders, Depression Neurology: History of: Cerebrovascular Accident, Peripheral Neuropathy No history of: Seizures HEENT: History of: Eye Problem (BLIND) Endocrine: History of: Diabetes Mellitus (IDDM), Diabetes Mellitus (NIDDM), Dyslipidemia Rheumatology: History of;: Gout (LEFT FOOT), Rheumatoid Arthritis (RIGHT HAND) Renal: History of: Dialysis (mon and mon), Renal Failure Gastrointestinal: History of: GI Problems (CONSTIPATION) Musculoskeletal: History of: Amputation (LEFT ABOVE KNEE AMP, RIGHT BELOW KNEE) Hematology: History of: Bleeding Problems (HEMOPHYLLIAC) Other: History of: Eczema, Skin Problems (Decubitus ulcers) - Surgical History Cardiac Surgeries: Sugical HX of: Cardiac Surgery (LEFT LEG ARTERIAL SURGERY) HEENT Surgeries: Surgical HX of: Eye Surgery (CATARACT BILLTERAL) Abdominal Surgeries: Surgical HX of: Abdominal Surgery, Appendectomy Reproductive Surgeries: Surgical HX of;: Section (1), Gynecologic Surgery, Hysterectomy Orthopedic Surgeries: Surgical HX of;: Implanted Devices (FISTULA IN LEFT AND RIGHT LEG LEFT NOT FUNCTIONAL) - Family History Family History: Reports;: Family Anesthesia Reaction (DAUGHTER- TACHYCARDIA), Family Cancer, Family Diabetes (MOTHER AND FATHER), Family Heart Disease, Family Hypertension (FATHER), Family Stroke (DAD MOTHER) - Social History Smoking Status: Never smoker Frequency of Alcohol Use: None Type of Drug Use: None 12 point system: reviewed and no additional remarkable complaints except as stated Exam - Constitutional Vitals: Period Temp Pulse Resp BP Sys/Jacinto Pulse Ox Last 24 Hr 98.2 F-98.5 F 74-82 16-20 155-173/59-69 94-100 General appearance: mild distress - Head Head exam: Present: normal inspection - ENT ENT exam: Present: normal exam - Neck Neck exam: Present: normal inspection - Respiratory Respiratory exam: Present: rales - Cardiovascular Cardiovascular exam: Present: RRR - GI/Abdominal GI/Abdominal exam: Present: hypoactive bowel sounds, soft, other (feeding tube in place) - Extremities Exam Extremities exam: Present: other (Right BKA and Left AKA) - Back Exam Back exam: Present: other (Sacral ulcer with clean granulating base with clean edges and no necrotic tissue.) - Neurological Exam Neurological exam: Present: altered - Skin Skin exam: Present: normal color, warm, dry Quality Measures - VTE Contraindication to Mechanical VTE Prophylaxis: Bilateral Above the Knee Amputations Results - Labs CBC & BMP: 05/24/17 05:09 05/24/17 05:09 Lab Results: I have reviewed the past 24 hour labs
[2017-05-24] MEDS: DESITIN 4OZ/NYSTATIN 15 GRAM MIXTURE PASTE TOP SCH (20:15)
[2017-05-24] MEDS ORDERED: ACETIC ACID 0.25% IRRIGATION 1,000 ML BOTTLE IRRIG SCH (21:00)
[2017-05-25] MEDS: DILTIAZEM 60 MG TABLET PO SCH ×4 (00:58→17:45)
[2017-05-25 06:36] LABS: Basophils % 0.7 % (0.0-0.8); Eosinophils # 0.2 10*3/uL (0.0-0.87); Eosinophils % 3.8 % (0.00-10.9); Hematocrit 35.4 VOL% (35.7-47.0); Immature Granulocytes % 0.3 %; Immature Granulocytes Absolute 0.02 #; Lymphocytes # 1.5 10*3/uL (1.4-4.0); Lymphocytes % 25.4 % (21.3-54.2); Mean Corpuscular HGB Conc 32.8 GM/DL (32-36); Mean Corpuscular Hemoglobin 27 PG (27-34); Mean Corpuscular Volume 83.7 FL (87-102); Mean Platelet Volume 11.3 FL (9.6-12.0); Monocytes # 0.4 10*3/uL (0.11-0.8); Monocytes % 7.6 % (1.7-12.7); Neutrophils # 3.6 10*3/uL (1.4-7.4); Neutrophils % 62.2 % (38.7-73.9); Platelet Count 236 T/CUMM (130-400); Red Cell Distribution Width 24.7 % (9.3-17.3); White Blood Count 5.8 T/CUMM (4-12)
[2017-05-25 06:40] LABS: Hemoglobin 11.6 GM/DL (12.0-16.0); Red Blood Count 4.23 MC/CUMM (3.8-5.5)
[2017-05-25 07:00] LABS: Anisocytosis 1+; Hypochromasia 1+; Microcytosis 1+; Polychromasia Slight
[2017-05-25 07:01] LABS: Ovalocytes Slight; Platelet Estimate Normal
[2017-05-25 07:13] LABS: Osmolality,Calculated 277.5 MOS/KG (273-304); Potassium 3.5 MMOL/L (3.5-5.1)
--- NOTE | 2017-05-25 08:15 | Hospitalist Progress Note ---
Assessment and Plan (1) Anemia Status: Acute Assessment and plan: 05/23-Hemoglobin and hematocrit noted at 6.4 and 20.3 at the time of ED presentation. We will transfused 1 unit of packed red blood cells and recheck H &H in a.m. 05/24-Hemoglobin and hematocrit improved; noted at 8.9 at 28.0; which is significantly increased from 6.9 and 20.3 at admission. 05/25-hemoglobin hematocrit stable at 11.6 and 35.4. EGD this a.m. per GI. Current Visit: Yes (2) Diabetes mellitus Status: Chronic Assessment and plan: We will start Accu-Cheks with sliding scale coverage. Current Visit: No Qualifiers: Diabetes mellitus type: type 2 Diabetes mellitus complication detail: with other kidney complication (3) End stage renal disease on dialysis Problem details: No acute indication for HD at this time. Status: Chronic Assessment and plan: Nephrology to manage. Current Visit: No (4) PEG (percutaneous endoscopic gastrostomy) status Status: Acute Assessment and plan: Enteral feedings on hold pending GI evaluation. Current Visit: Yes (5) Heme positive stool Status: Acute Assessment and plan: Heme positive stool noted at the time of ED presentation. We will consult GI to evaluate and advise. Current Visit: Yes Hospitalist: Subjective Interval history: Patient seen and examined; chart reviewed. No significant overnight events per nursing staff. Awaiting EGD this morning per GI. Exam - Constitutional Vitals: Period Temp Pulse Resp BP Sys/Jacinto Pulse Ox Last 24 Hr 96.6 F-98.6 F 71-83 17-18 116-155/49-77 94-95 General appearance: normal weight, no acute distress - Head Head exam: Present: normal inspection, normocephalic, atraumatic - Eye Eye exam: Present: EOMI. Absent: conjunctival injection Pupils: Present: IFTIKHAR, normal accommodation - ENT ENT exam: Present: normal exam, normal external ear exam, normal oropharynx - Neck Neck exam: Present: normal inspection. Absent: lymphadenopathy, meningismus, thyromegaly - Respiratory Respiratory exam: Present: clear to auscultation bilaterally. Absent: rales, rhonchi, stridor, wheezes - Cardiovascular Cardiovascular exam: Present: regular rate and rhythm, tachycardia. Absent: carotid bruit, diastolic murmur, gallop, JVD, rubs, systolic murmur - GI/Abdominal GI/Abdominal exam: Present: normal bowel sounds, soft, other (PEG tube noted) - Extremities Exam Extremities exam: Present: other (Upper extremity and lower extremity contractures noted) - Back Exam Back exam: Present: normal inspection - Neurological Exam Neurological exam: Present: alert, other (Nonverbal; aphasic) - Psychiatric Psychiatric exam: Present: normal affect - Skin Skin exam: Present: normal color, warm, dry, other (Ulceration noted to sacrum) Results - Labs CBC & BMP: 05/25/17 05:18 05/25/17 05:18 Lab Results: I have reviewed the past 24 hour labs Quality Measures - VTE Contraindication to Mechanical VTE Prophylaxis: Bilateral Above the Knee Amputations
[2017-05-25] MEDS ORDERED: DEXTROSE 50% 25 GM/50 ML VIAL IV ONE (08:50)
--- NOTE | 2017-05-25 09:28 | Operative Note ---
Date of procedure: 05/25/17 Pre-op diagnosis: hematocrit to 20.3%, dysphagia, guaiac positive stools Post-op diagnosis: other (This patient had nearly lost her PEG tube as this was noted to have deflated bulb with the tip still in the stomach, somewhat irritated tract, no gross evidence of ulceration but erosive gastritis and erosive esophagitis noted potentially adding to the patient's anemia.) Procedure: PROCEDURE: Esophagogastroduodenoscopy (EGD) with cold biopsy for pathology REFERRING PHYSICIAN: Leona Callahan MD INDICATIONS: This is a patient who is dropped her hematocrit from her usual 35% down to 20.3% now status post transfusion. Guaiac positive stools also noted patient has dysphagia and has a PEG tube in place, will look for evidence of a cause for bleeding given the patient was reported to have melena previously. The prior H&P was reviewed and interrim changes are as noted: No change from GI consultation yesterday. ENDOSCOPIST: Kennedy Higgins MD ENDOSCOPE: Olympus Video 100 System upper endoscope ASA CLASS: 4 EXAM: CV: regular rate and rhythm respiratory: Clear without wheezes abdominal: active bowel sounds MEDICATION: Per nursing anesthesia protocol, see their notes PROCEDURE: After discussion of the potential risks and benefits of upper endoscopy, the informed consent was obtained. The patient was then placed in the left lateral decubitus position where sedation was achieved as noted above. Esophageal intubation was performed without difficulty, and the endoscope was advanced through the esophagus, stomach and duodenum. A slow withdrawal was then performed with retroflexion in the stomach for careful inspection of the incisura angularis, fundus and cardia. The scope was then returned to a neutral position and withdrawn through the esophagus. The patient tolerated the procedure well and without complication. BIOPSIES: Gastric antrum/body, duodenum PHOTOGRAPHS: Obtained FINDINGS: Hypopharynx and Larynx: Normal Esohagoscopy Upper and middle thirds: Normal Lower third LA class B erosive esophagitis, otherwise normal without stricturing or Cartwright's Esophogastric junctions: LA class B erosive esophagitis without stricture or Cartwright's Gastroscopy: Cardia/Fundus: 4 cm hiatal hernia, otherwise normal Body: The PEG tube unfortunately had deflated its bulb and was nearly out of the tract. This was removed and a new feeding tube inserted using a standard wire/PEG tube initial placement kit. There was mild linear gastritis noted here as well which was biopsied, the tract appeared slightly inflamed but the contralateral wall does not have any large ulcers just a few small erosions. Antrum and pylorus mild erosive linear gastritis, biopsied Duodenoscopy: Bulb normal-appearing, biopsied for sprue Second and third portions: Normal-appearing, biopsied for sprue IMPRESSION: This patient had nearly lost her PEG tube as this was noted to have deflated bulb with the tip still in the stomach, somewhat irritated tract, no gross evidence of ulceration but erosive gastritis and erosive esophagitis noted potentially adding to the patient's anemia. RECOMMENDATIONS: Follow up for biopsy results in 1-2 weeks by phone [phone] Continue anti-gastroesophageal reflux measures (avoid carbonated and acidic beverages, avoid eating within 2 hours of bedtime, avoid tight fitting clothing , and elevate the front bed posts 6 inches prior to sleeping. Prevacid 30 mg daily via PEG tube. Can resume use of PEG tube at this time. Kennedy Higgins MD COPY TO: Leona Callahan MD Anesthesia: MAC Surgeon / Physician: Kennedy Higgins Estimated blood loss: minimal Specimens: other (Gastric antrum/body, duodenum) Condition: stable Disposition: post procedure unit ([facility] Suite) Results - Labs CBC & BMP: 05/25/17 05:18 05/25/17 05:18 Discharge Plan - Discharge Medications No Action Cholestyramine/Aspartame [Questran Light] 4 gm PER TUBE DAILY PRN PRN Reason: Diarrhea Insulin Regular, Human [NovoLIN R] See Protocol SUBCUT ACHS Famotidine 20 mg PER TUBE BID traMADol TAB [Ultram] 50 mg PER TUBE Q6H PRN PRN Reason: Pain Promethazine Tab [Phenergan Tab] 25 mg PER TUBE Q4H PRN PRN Reason: Nausea Albuterol/Ipratropium Neb [Duoneb] 3 ml RESP TX RT Q4H PRN PRN Reason: Wheezing Acetaminophen Tab [Tylenol Tab] 325 mg PER TUBE Q4H PRN PRN Reason: Fever Furosemide Tab [Lasix Tab] 20 mg PER TUBE BID predniSONE TAB [PredniSONE] 10 mg PER TUBE DAILY Clopidogrel [Plavix] 75 mg PER TUBE DAILY Escitalopram Oxalate 20 mg PER TUBE DAILY Potassium Chloride 10 meq PER TUBE DAILY Diltiazem Tab [Cardizem Tab] 60 mg PER TUBE Q6H - Follow Up or Referral - Forms/Instructions
--- NOTE | 2017-05-25 09:29 | Gastrointestinal Progress Note ---
Assessment and Plan (1) Anemia Status: Acute Assessment and plan: This patient does have some guaiac positive stools and has anemia which is down from her usual 35% to 20.3% in the face of use of Plavix as an outpatient. We can certainly perform upper endoscopy which may demonstrate gastric erosions or ulcerations to explain the blood loss. We may take some biopsies for celiac sprue. I would like to avoid having to do colonoscopy on this patient if at all possible. Anemia certainly is multifactorial may have a lot to do with her underlying end-stage renal disease. She seems to be tolerating her food well and is not complaining of reflux at least when asking her yes/no questions and observing have movements provided the veracity of her answers is accurate. Will need to consent her family for an upcoming upper endoscopy tomorrow morning. 05/25/17--The patient has the following findings on upper endoscopy: This patient had nearly lost her PEG tube as this was noted to have deflated bulb with the tip still in the stomach, somewhat irritated tract, no gross evidence of ulceration but erosive gastritis and erosive esophagitis noted potentially adding to the patient's anemia. No cause seen for melena. She appears to be doing well with posttransfusion now with hematocrit back up to 35% after having dropped down to 20.3. Current Visit: Yes (2) Heme positive stool Status: Acute Assessment and plan: As noted above the patient may have underlying esophagitis, gastritis, duodenitis, AVMs, gastric cancer, colon cancer, potential AVMs for the rest of the bowel as possible differential of the blood loss. I do not see any recent endoscopic evaluation aside from the placement of the PEG tube back in September 2014. 05/25/17--the heme positive stool could likely be caused by the erosive gastritis or erosive esophagitis either. Current Visit: Yes (3) Dysphagia as late effect of cerebrovascular accident (CVA) Status: Acute Assessment and plan: Poststroke patient continues to require PEG tube for ongoing feeding, nutrition and hydration needs. If we see a contralateral ulceration from the current PEG tube with a balloon type internal balloon, we may have to switch this out for a more mucosal-friendly disc type tomorrow. 05/25/17--patient can resume use of her PEG tube for medication, hydration and nutritional needs. Current Visit: No Gastroenterology - PN: Subj Interval history: No new complaints, patient has her expressive aphasia but appears to be more comfortable today. Exam (Progress Note) - Constitutional Vitals: Period Temp Pulse Resp BP Sys/Jacinto Pulse Ox Last 24 Hr 96.6 F-98.6 F 71-83 17-20 116-163/49-77 94-100 General appearance: no acute distress - Eye Eye exam: Present: EOMI - Respiratory Respiratory exam: Present: clear to auscultation bilaterally - Cardiovascular Cardiovascular exam: Present: regular rate and rhythm - GI/Abdominal GI/Abdominal exam: Present: normal bowel sounds, soft. Absent: distended, guarding, tenderness, rebound - Extremities Exam Extremities exam: Absent: edema - Neurological Exam Neurological exam: Present: alert, altered (Expressive aphasia) - Psychiatric Psychiatric exam: Present: flat affect - Skin Skin exam: Present: warm Results - Labs CBC & BMP: 05/25/17 05:18 05/25/17 05:18
--- NOTE | 2017-05-25 09:58 | Anesthesia Post-Op ---
Anesthesia Post OP - Post Ansesthetic Evaluation Patient seen in post op: Yes Resp: within normal limits CV: within normal limits Mental: within normal limits Temp: within normal limits [id number]: within normal limits Nausea and Vomiting: within normal limits Pain: within normal limits
--- NOTE | 2017-05-25 10:51 | Nephrology Progress Note ---
Nephrology - PN: Subj Interval history: The patient is resting status post E scope today which showed gastritis as well as deflated PEG tube bulb. No other acute changes. Hemodynamics are acceptable. Metabolic's are stable. Hematocrit is stable at 35. Exam (PN)-Nephrology - Vital Signs Vital signs: Period Temp Pulse Resp BP Sys/Jacinto Pulse Ox Last 24 Hr 96.6 F-98.6 F 71-85 14-20 115-163/49-77 94-100 - General Appearance General appearance: fatigue, frail EENT: ATNC Neck: supple Respiratory: clear Cardiology: regular rate, regular rhythm Gastrointestinal: normoactive bowel sounds, no tenderness Neurologic: aphasic Musculoskeletal: no clubbing - Lab 05/25/17 05:18 05/25/17 05:18 Most recent lab results Calcium 9.0 MG/DL (8.5-10.1) 05/25/17 05:18 Magnesium 2.6 MG/DL (1.8-2.4) H 05/24/17 05:09 Assessment and Plan (1) End stage renal disease on dialysis Problem details: No acute indication for HD at this time. Status: Chronic Current Visit: No (2) Paroxysmal atrial fibrillation Status: Chronic Current Visit: No (3) Anemia Status: Chronic Current Visit: No Qualifiers: Anemia type: iron deficiency anemia due to chronic blood loss (4) Diabetes Status: Chronic Current Visit: No Qualifiers: Diabetes mellitus type: type 2 Diabetes mellitus complication detail: with other kidney complication (5) History of stroke Status: Chronic Current Visit: No (6) History of lower limb amputation Status: Chronic Current Visit: No (7) Cerebrovascular accident Status: Chronic Current Visit: No (8) Diabetes mellitus Status: Chronic Current Visit: No Qualifiers: Diabetes mellitus type: type 2 Diabetes mellitus complication detail: with other kidney complication (9) Anemia Status: Acute Assessment and plan: Hematocrit is stable. Current Visit: Yes (10) PEG (percutaneous endoscopic gastrostomy) status Status: Acute Current Visit: Yes
[2017-05-25] MEDS ORDERED: PROPOFOL 200 MG/20 ML VIAL IV ONE (11:00)
[2017-05-25] MEDS: ACETIC ACID 0.25% IRRIGATION 1,000 ML BOTTLE IRRIG SCH (11:10)
[2017-05-25] MEDS: ESCITALOPRAM 10 MG TABLET PER TUBE SCH (11:10)
[2017-05-25] MEDS: DESITIN 4OZ/NYSTATIN 15 GRAM MIXTURE PASTE TOP SCH ×2 (11:10→20:55)
[2017-05-25] MEDS: FAMOTIDINE 20 MG TABLET PER TUBE SCH ×2 (11:10→20:54)
[2017-05-25] MEDS: COLLAGENASE OINT 30 GM TUBE TOP SCH (11:10)
[2017-05-25] MEDS: FUROSEMIDE 20 MG TABLET PER TUBE SCH ×2 (11:11→20:55)
[2017-05-25] MEDS ORDERED: DEXTROSE 50% 25 GM/50 ML VIAL IV PRN (11:44)
[2017-05-25] MEDS ORDERED: GLUCAGON 1 MG VIAL IM PRN (11:44)
--- NOTE | 2017-05-25 16:42 | Hospitalist Progress Note ---
Assessment and Plan (1) Anemia Status: Acute Assessment and plan: Stable after transfusion Current Visit: Yes (2) Heme positive stool Status: Acute Assessment and plan: s/p EGD Current Visit: Yes (3) PEG (percutaneous endoscopic gastrostomy) status Status: Acute Current Visit: Yes (4) Decubitus ulcer of sacral region, stage 3 Status: Acute Assessment and plan: Evaluated by Dr. Paulino at time of regular appointment Current Visit: Yes Hospitalist: Subjective Interval history: No acute events overnight. H/H stable. Possible discharge back to longterm tomorrow. Exam - Constitutional Vitals: Period Temp Pulse Resp BP Sys/Jacinto Pulse Ox Last 24 Hr 97.4 F-98.6 F 71-85 14-20 115-163/49-103 94-100 General appearance: over weight - Head Head exam: Present: normocephalic, atraumatic - Eye Eye exam: Present: EOMI Pupils: Present: IFTIKHAR - ENT ENT exam: Present: normal exam - Neck Neck exam: Present: normal inspection - Respiratory Respiratory exam: Present: clear to auscultation bilaterally - Cardiovascular Cardiovascular exam: Present: regular rate and rhythm - GI/Abdominal GI/Abdominal exam: Present: normal bowel sounds, soft. Absent: tenderness, rebound - Extremities Exam Extremities exam: Present: normal inspection - Back Exam Back exam: Present: normal inspection - Skin Skin exam: Present: warm, intact Results - Labs CBC & BMP: 05/25/17 05:18 05/25/17 05:18 Quality Measures - VTE Contraindication to Mechanical VTE Prophylaxis: Bilateral Above the Knee Amputations
[2017-05-26] MEDS: DILTIAZEM 60 MG TABLET PO SCH ×3 (00:16→16:03)
[2017-05-26 07:38] LABS: Magnesium 2.6 MG/DL (1.8-2.4); Osmolality,Calculated 282.1 MOS/KG (273-304); Phosphorous 4.1 MG/DL (2.5-4.9); Potassium 3.6 MMOL/L (3.5-5.1); Prealbumin 20.4 MG/DL (20-40)
[2017-05-26] MEDS: FAMOTIDINE 20 MG TABLET PER TUBE SCH (08:07)
[2017-05-26] MEDS: ESCITALOPRAM 10 MG TABLET PER TUBE SCH (08:07)
[2017-05-26] MEDS: COLLAGENASE OINT 30 GM TUBE TOP SCH (08:07)
[2017-05-26] MEDS: FUROSEMIDE 20 MG TABLET PER TUBE SCH (08:07)
[2017-05-26] MEDS: DESITIN 4OZ/NYSTATIN 15 GRAM MIXTURE PASTE TOP SCH (08:08)
--- NOTE | 2017-05-26 09:00 | Gastrointestinal Progress Note ---
Assessment and Plan (1) Anemia Status: Acute Assessment and plan: This patient does have some guaiac positive stools and has anemia which is down from her usual 35% to 20.3% in the face of use of Plavix as an outpatient. We can certainly perform upper endoscopy which may demonstrate gastric erosions or ulcerations to explain the blood loss. We may take some biopsies for celiac sprue. I would like to avoid having to do colonoscopy on this patient if at all possible. Anemia certainly is multifactorial may have a lot to do with her underlying end-stage renal disease. She seems to be tolerating her food well and is not complaining of reflux at least when asking her yes/no questions and observing have movements provided the veracity of her answers is accurate. Will need to consent her family for an upcoming upper endoscopy tomorrow morning. 05/25/17--The patient has the following findings on upper endoscopy: This patient had nearly lost her PEG tube as this was noted to have deflated bulb with the tip still in the stomach, somewhat irritated tract, no gross evidence of ulceration but erosive gastritis and erosive esophagitis noted potentially adding to the patient's anemia. No cause seen for melena. She appears to be doing well with posttransfusion now with hematocrit back up to 35% after having dropped down to 20.3. 05/26/17--The patient is doing better at this point. Tolerating tube feeds well , I am rechecking the CBC as this was not back at the time of the visit today. The patient is on dialysis. She is not having any further melena. I will have my partners check up on her over the weekend as needed but will not have him visiting on a daily basis unless you call them. If she develops further anemia down the road and is having acute bright red blood per rectum or maroon stools we could certainly consider colonoscopy if needed. Current Visit: Yes (2) Heme positive stool Status: Acute Assessment and plan: As noted above the patient may have underlying esophagitis, gastritis, duodenitis, AVMs, gastric cancer, colon cancer, potential AVMs for the rest of the bowel as possible differential of the blood loss. I do not see any recent endoscopic evaluation aside from the placement of the PEG tube back in September 2014. 05/25/17--the heme positive stool could likely be caused by the erosive gastritis or erosive esophagitis either. 05/26/17--Patient did have some erosive gastritis and erosive esophagitis likely the source for the guaiac positive stools. Current Visit: Yes (3) Dysphagia as late effect of cerebrovascular accident (CVA) Status: Acute Assessment and plan: Poststroke patient continues to require PEG tube for ongoing feeding, nutrition and hydration needs. If we see a contralateral ulceration from the current PEG tube with a balloon type internal balloon, we may have to switch this out for a more mucosal-friendly disc type tomorrow. 05/25/17--patient can resume use of her PEG tube for medication, hydration and nutritional needs. 05/26/17--The PEG tube was replaced yesterday with a standard [place] pull type PEG tube which should last for the next year and a half. Current Visit: No Gastroenterology - PN: Subj Interval history: Patient is tolerating her tube feedings at 45 mL/h without difficulty and no residuals. She has not had any nausea or vomiting. I do not see that her CBC has been rechecked and I will check that now. Exam (Progress Note) - Constitutional Vitals: Period Temp Pulse Resp BP Sys/Jacinto Pulse Ox Last 24 Hr 97.3 F-98.2 F 73-85 14-18 113-147/52-103 94-98 General appearance: no acute distress - Eye Eye exam: Present: EOMI Pupils: Present: IFTIKHAR - Respiratory Respiratory exam: Present: clear to auscultation bilaterally - Cardiovascular Cardiovascular exam: Present: regular rate and rhythm - GI/Abdominal GI/Abdominal exam: Present: normal bowel sounds, soft. Absent: distended, tenderness, rebound - Extremities Exam Extremities exam: Absent: edema - Neurological Exam Neurological exam: Present: alert, altered (Expressive aphasia) - Skin Skin exam: Present: warm Results - Labs CBC & BMP: 05/25/17 05:18 05/26/17 06:32
[2017-05-26 09:13] LABS: Basophils % 0.6 % (0.0-0.8); Eosinophils # 0.2 10*3/uL (0.0-0.87); Eosinophils % 4.3 % (0.00-10.9); Hematocrit 36.8 VOL% (35.7-47.0); Immature Granulocytes % 0.2 %; Immature Granulocytes Absolute 0.01 #; Lymphocytes # 1.5 10*3/uL (1.4-4.0); Lymphocytes % 28.7 % (21.3-54.2); Mean Corpuscular HGB Conc 32.6 GM/DL (32-36); Mean Corpuscular Hemoglobin 28 PG (27-34); Monocytes # 0.4 10*3/uL (0.11-0.8); Monocytes % 8.3 % (1.7-12.7); Neutrophils % 57.9 % (38.7-73.9); Platelet Count 252 T/CUMM (130-400); Red Blood Count 4.33 MC/CUMM (3.8-5.5); Red Cell Distribution Width 23.9 % (9.3-17.3); White Blood Count 5.2 T/CUMM (4-12)
--- NOTE | 2017-05-26 09:29 | Discharge Summary ---
<Bonny Gray - Last Filed: 05/26/17 09:21> Hospital Course - Hospital Course Hospital Course: This is a chronically ill 66-year-old female that presented to the ED at [facility] on the afternoon of May 23, 2017 from [facility] for the evaluation of anemia. The patient has a very complex medical history significant for: Cerebrovascular accident, anemia, diabetes mellitus, end-stage renal disease, hypertension, peripheral vascular disease, atrial fibrillation, anxiety disorder, depression, peripheral neuropathy, gouty arthritis, chronic constipation, dysphasia, chronic multiple decubitus ulcerations. The patient has a surgical history significant for: right below the knee amputation, left [id number] amputation, bilateral cataract removal, appendectomy, percutaneous gastrostomy tube placement, hysterectomy, section, and arteriovenous graft creation. Apparently, the patient had labs drawn at the [facility] on the day prior to presentation . The facility received the results and her hemoglobin was noted at 6.4/20.3. The patient was assessed at the time of ED presentation; labs were obtained. Hematology panel reported white blood cell count of 5.1, hemoglobin 6.4, hematocrit 20.3, platelet count 128. Chemistry panel reported a sodium at 135, potassium 3.7, chloride 95, carbon dioxide 31, anion gap 12.7, BUN 31, creatinine 2.80, magnesium 2.5, total bilirubin less than 039, alkaline phosphatase 137, albumin 2.8, AST 28, ALT 21. Stools were positive for occult blood upon digital examination in the ED. Chest x-ray reported cardiomegaly and tiny left effusion and underlying by basilic atelectatic change and/or edema. The patient was subsequently admitted. Blood products were replaced. A nephrology and gastrointestinal consultations were requested. The patient was evaluated by gastroenterology. On May 25, 2017, the patient underwent esophagogastroduodenoscopy with cold biopsy for pathology under the direction of Dr. Kennedy Beverly. In addition, the patient's percutaneous gastrostomy to was noted to be an operable and was changed at that time. The esophagogastroduodenoscopy with significant for erosive gastritis and erosive esophagitis. Probable cause of blood loss anemia. Protein pump inhibitors were started at that time. The patient was evaluated by nephrology and hemodialysis was continued. The patient's hemoglobin and hematocrit have stabilized and is noted at 12.0/36.8 today. She has now reached maximal benefit of inpatient stay and will be discharged back to [facility]. Diagnosis - Discharge Diagnosis (1) Anemia Status: Acute (2) Diabetes mellitus Status: Chronic (3) End stage renal disease on dialysis Status: Chronic (4) PEG (percutaneous endoscopic gastrostomy) status Status: Acute (5) Heme positive stool Status: Acute Discharge Plan - Discharge Data Disposition: Disch/Xfer to Snf - Discharge Medications Continue Cholestyramine/Aspartame [Questran Light] 4 gm PER TUBE DAILY PRN PRN Reason: Diarrhea Insulin Regular, Human [NovoLIN R] See Protocol SUBCUT ACHS Famotidine 20 mg PER TUBE BID traMADol TAB [Ultram] 50 mg PER TUBE Q6H PRN PRN Reason: Pain Promethazine Tab [Phenergan Tab] 25 mg PER TUBE Q4H PRN PRN Reason: Nausea Acetaminophen Tab [Tylenol Tab] 325 mg PER TUBE Q4H PRN PRN Reason: Fever Furosemide Tab [Lasix Tab] 20 mg PER TUBE BID predniSONE TAB [PredniSONE] 10 mg PER TUBE DAILY Clopidogrel [Plavix] 75 mg PER TUBE DAILY Escitalopram Oxalate 20 mg PER TUBE DAILY Potassium Chloride 10 meq PER TUBE DAILY Diltiazem Tab [Cardizem Tab] 60 mg PER TUBE Q6H Albuterol/Ipratropium Neb [Duoneb] 3 ml RESP TX RT Q4H - Follow Up or Referral - Forms/Instructions Exam - Constitutional Vitals: Period Temp Pulse Resp BP Sys/Jacinto Pulse Ox Last 24 Hr 97.3 F-98.2 F 73-85 14-18 113-147/52-103 94-98 Discharge Results Procedures and tests throughout hospitalization: Pending Orders 05/23/17 14:03 Red Blood Cells Leuko Red Stat 05/24/17 11:29 Red Blood Cells Leuko Red Routine 05/25/17 05:20 Occult Blood, Stool Routine 05/27/17 04:00 CBC [Comp Blood Count Auto Diff] IN AM Labs on day of discharge: Labs from last 24 hours 05/26/17 05/26/17 05/25/17 06:32 06:22 08:59 WBC 5.2 RBC 4.33 Hgb 12.0 Hct 36.8 MCV 85.0 L MCH 28 MCHC 32.6 RDW 23.9 H Plt Count 252 MPV 11.0 Neut % (Auto) 57.9 Lymph % (Auto) 28.7 [place] % (Auto) 8.3 Eos % (Auto) 4.3 Baso % (Auto) 0.6 Neut # (Auto) 3.0 Lymph # (Auto) 1.5 [place] # (Auto) 0.4 Eos # (Auto) 0.2 Baso # (Auto) 0.0 Immature Gran % 0.2 Nucleated RBC % 0.0 Immature Gran # 0.01 Nucleated RBCs # 0.00 Sodium 135 L Potassium 3.6 Chloride 97 L Carbon Dioxide 29 Anion Gap 12.6 BUN 34 H Creatinine 4.10 H GFR Calculation 12 BUN/Creatinine Ratio 8.00 Glucose 186 H POC Glucose 82 Calculated Osmolality 282.1 Calcium 9.0 Phosphorus 4.1 Magnesium 2.6 H Prealbumin 20.4 DS: Provider Date of admission: 05/23/17 16:05 Primary care physician: . No PCP Attending physician on admission: Leona Callahan MD Consults: 05/23/17 16:05 Consult to Physician [CONS] Routine Comment: heme positive Consulting Provider: Kennedy Higgins When should Consulting Provider be notified: In am Person Notified: GRIS Date Notified: 05/24/17 Time Notified: 09:18 05/23/17 16:06 Consult to Physician [CONS] Routine Comment: Consulting Provider: Roberth Aguilar When should Consulting Provider be notified: Now Person Notified: Date Notified: 05/24/17 Time Notified: 09:23 05/23/17 18:51 Consult to Case Mgmt/Social Srvs [CONS] Routine Reason for Case Mgmt/Social Srvs: Discharge Planning Consult to Occupational Therapy [CONS] Routine Reason for Occupational Therapy: Evaluate and Treat Consult to Physical Therapy [CONS] Routine Reason for Physical Therapy: Evaluate and Treat 05/23/17 20:00 Consult to Wound Care - [place] [CONS] Routine Reason for Wound Care: Wound Care Management 05/24/17 07:30 Consult to Physician [CONS] Routine Comment: wound, follows in clinic, appointment today Consulting Provider: Niall Paulino Person Notified: MD STOUT Date Notified: 05/24/17 Time Notified: 09:16 05/24/17 13:46 Consult to Anesthesiology [CONS] Routine Consulting Provider: Reason for Anesthesiology: Pre-op Clearance 05/25/17 10:29 Consult to Dietitian [CONS] Routine Reason for Dietitian: TF-Initiate/Manage Discharging clinician: Bonny Gray CNP <Leona Callahan - Last Filed: 05/26/17 09:55> Diagnosis - Discharge Diagnosis (1) Anemia Status: Chronic (2) Heme positive stool Status: Resolved (3) PEG (percutaneous endoscopic gastrostomy) status Status: Chronic (4) Decubitus ulcer of sacral region, stage 3 Status: Chronic Discharge Plan - Discharge Data Condition at Discharge: Stable Discharge Diet: advance to your usual diet Activity: increase activity as tolerated Hygiene: no restrictions Contact your physician if you experience:: fever over 101, Bleeding Exam - Constitutional General appearance: over weight - Head Head exam: Present: normocephalic, atraumatic - Eye Eye exam: Present: EOMI Pupils: Present: IFTIKHAR - ENT ENT exam: Present: normal exam - Neck Neck exam: Present: normal inspection - Respiratory Respiratory exam: Present: clear to auscultation bilaterally. Absent: rhonchi, wheezes - Cardiovascular Cardiovascular exam: Present: regular rate and rhythm - GI/Abdominal GI/Abdominal exam: Present: normal bowel sounds, soft. Absent: tenderness, rebound - Extremities Exam Extremities exam: Present: normal inspection - Back Exam Back exam: Present: normal inspection - Neurological Exam Neurological exam: Present: alert, oriented X3 - Psychiatric Psychiatric exam: Present: normal affect, normal mood - Skin Skin exam: Present: warm, intact
[2017-05-26 09:46] LABS: Hypochromasia 1+; Platelet Estimate Adequate
[2017-05-26 09:47] LABS: Microcytosis 1+
--- NOTE | 2017-05-26 10:01 | Dialysis Note ---
Dialysis Note - Dialysis Note Patient seen on dialysis tolerated procedure. Blood pressure 131/62. Cardiovascular is regular rate , lungs are clear to auscultation.
[2017-05-26] MEDS: ACETIC ACID 0.25% IRRIGATION 1,000 ML BOTTLE IRRIG SCH (11:45)
--- NOTE | 2017-05-26 12:24 | Pathology Report from [facility] ---
[facility] ACCESSION # : [id number] PATIENT NAME : Mukesh Lynch ORDERING DR : Kennedy Higgins MD CLINICAL HX: Dysphagia POST-OP DX: Same SPECIMEN INFO: BERT GROSS DESCRIPTION: Received in formalin labeled MUKESH LYNCH is a 0.7 x 0.3 cm aggregate of salas tissue submitted in one cassette. DIAGNOSIS FOR MUKESH LYNCH: BERT BIOPSIES: Chronic superficial gastritis. H. pylori not seen on special stain. COLLECTED DATE: 05/25/2017 [facility] REPORT DATE: 05/26/2017 ELECTRONICALLY SIGNED BY: Giuseppe Turner M.D. 05/26/2017 - 11:26:47 MTDBarbara
[2017-05-26 13:17] VITALS: BP 96/59
== END 2017-05-26 15:09 | DRG 326 ==
LOC: EDBD → EDUNIT# → N.ED 12:20 → N.EDINP 16:05 → SUATTDRO 16:05 → N.EDINP 18:25 → N.5E 18:48
PROVIDERS: ADMIT Internal Medicine; ATTEND Phlebology

== ENCOUNTER 2017-10-04 13:30 | Inpatient (IN) ==
[2017-10-04] MEDS ORDERED: ONDANSETRON 4 MG/2 ML VIAL IV STA (14:21)
[2017-10-04] MEDS ORDERED: ONDANSETRON 4 MG/2 ML VIAL ONE (15:54)
[2017-10-04 16:05] LABS: Basophils % 0.1 % (0.0-0.8); Eosinophils # 0.1 10*3/uL (0.0-0.87); Eosinophils % 0.4 % (0.00-10.9); Hemoglobin 8.5 GM/DL (12.0-16.0); Immature Granulocytes % 0.4 %; Immature Granulocytes Absolute 0.07 #; Lymphocytes # 0.8 10*3/uL (1.4-4.0); Lymphocytes % 4.8 % (21.3-54.2); Mean Corpuscular HGB Conc 31.5 GM/DL (32-36); Mean Corpuscular Hemoglobin 28 PG (27-34); Mean Corpuscular Volume 88.5 FL (87-102); Mean Platelet Volume 10.7 FL (9.6-12.0); Monocytes # 0.8 10*3/uL (0.11-0.8); Monocytes % 4.9 % (1.7-12.7); NRBC # 0.02 10*3/uL; Neutrophils # 15.3 10*3/uL (1.4-7.4); Neutrophils % 89.4 % (38.7-73.9); Platelet Count 311 T/CUMM (130-400); Red Blood Count 3.05 MC/CUMM (3.8-5.5); Red Cell Distribution Width 16.9 % (9.3-17.3); White Blood Count 17.1 T/CUMM (4-12)
[2017-10-04 16:26] LABS: Albumin 2.7 G/DL (3.4-5.0); Bilirubin,Total 0.6 MG/DL (0.2-1.0); Calcium 9.1 MG/DL (8.5-10.1); Osmolality,Calculated 287.5 MOS/KG (273-304); Potassium 3.6 MMOL/L (3.5-5.1); Total Protein 6.8 G/DL (6.4-8.3)
[2017-10-04] MEDS ORDERED: CLINDAMYCIN INJ 600 MG in PREMIX 1 EACH IV STA (16:26)
[2017-10-04 16:32] LABS: Lymphocytes 7 % (20-55); Segmented Neutrophils 85 % (50-85); Total Cells Counted 100
[2017-10-04 16:33] LABS: Hypochromasia 1+; Target Cells Slight
[2017-10-04 16:34] LABS: Anisocytosis 1+; Polychromasia Few; Stomatocytes Few
[2017-10-04 16:35] LABS: Basophilic Stippling Few; Platelet Estimate Adequate
[2017-10-04] MEDS ORDERED: CLINDAMYCIN INJ 50 ML IV ONE (16:42)
[2017-10-04] MEDS ORDERED: ONDANSETRON 4 MG/2 ML VIAL IV PRN (17:45)
[2017-10-04] MEDS: ALBUTEROL/IPRATROPIUM 3 ML NEB RESP TX SCH (20:37)
[2017-10-04] MEDS ORDERED: GLUCAGON 1 MG VIAL IM PRN (21:01)
[2017-10-04] MEDS ORDERED: DEXTROSE 50% 25 GM/50 ML VIAL IV PRN (21:01)
[2017-10-04] MEDS ORDERED: CHOLESTYRAMINE/ASPARTAME 4 GM PACK PER TUBE PRN (21:25)
[2017-10-04] MEDS ORDERED: ACETAMINOPHEN 325 MG TABLET PER TUBE PRN (21:25)
[2017-10-04] MEDS ORDERED: traMADol 50 MG TABLET PER TUBE PRN (21:25)
[2017-10-04] MEDS ORDERED: PROMETHAZINE 25 MG TABLET PER TUBE PRN (21:25)
[2017-10-04] MEDS ORDERED: SODIUM CHLORIDE 0.9% 50 ML IV ONE (21:35)
[2017-10-04] MEDS: cefTRIAXone 1,000 MG in SYRINGE 1 EACH IV SCH (21:42)
[2017-10-04] MEDS: HEPARIN 5,000 UNIT/1 ML VIAL SUBCUT SCH (21:42)
[2017-10-04] MEDS: AZITHROMYCIN INJ 500 MG in SODIUM CHLORIDE 0.9% 250 ML IV SCH (22:00)
[2017-10-04] MEDS: DILTIAZEM 60 MG TABLET PO SCH (22:00)
[2017-10-04] MEDS: INSULIN REGULAR 100 UNIT/ML SUBCUT SCH (22:39)
[2017-10-05] MEDS: ALBUTEROL/IPRATROPIUM 3 ML NEB RESP TX SCH ×4 (01:13→19:57)
[2017-10-05] MEDS: DILTIAZEM 60 MG TABLET PO SCH ×4 (04:00→21:36)
[2017-10-05] MEDS: HEPARIN 5,000 UNIT/1 ML VIAL SUBCUT SCH ×3 (05:13→21:35)
[2017-10-05 06:31] LABS: Basophils % 0.2 % (0.0-0.8); Eosinophils % 0.4 % (0.00-10.9); Hemoglobin 8.3 GM/DL (12.0-16.0); Immature Granulocytes % 0.6 %; Immature Granulocytes Absolute 0.06 #; Lymphocytes # 1.1 10*3/uL (1.4-4.0); Mean Corpuscular HGB Conc 30.7 GM/DL (32-36); Mean Corpuscular Hemoglobin 27 PG (27-34); Mean Corpuscular Volume 88.8 FL (87-102); Mean Platelet Volume 10.9 FL (9.6-12.0); Monocytes # 0.7 10*3/uL (0.11-0.8); Monocytes % 6.9 % (1.7-12.7); NRBC # 0.03 10*3/uL; Neutrophils # 8.4 10*3/uL (1.4-7.4); Neutrophils % 80.9 % (38.7-73.9); Platelet Count 301 T/CUMM (130-400); Red Blood Count 3.04 MC/CUMM (3.8-5.5); Red Cell Distribution Width 16.6 % (9.3-17.3); White Blood Count 10.4 T/CUMM (4-12)
[2017-10-05 07:03] LABS: Calcium 9.1 MG/DL (8.5-10.1); Osmolality,Calculated 293.4 MOS/KG (273-304); Potassium 3.7 MMOL/L (3.5-5.1)
[2017-10-05] MEDS: INSULIN REGULAR 100 UNIT/ML SUBCUT SCH ×4 (10:30→21:33)
[2017-10-05] MEDS: MULTIVITAMIN (CENTRUM) TABLET PER TUBE SCH (10:31)
[2017-10-05] MEDS: ESCITALOPRAM 10 MG TABLET PER TUBE SCH (10:32)
[2017-10-05] MEDS: CLOPIDOGREL 75 MG TABLET PER TUBE SCH (10:32)
[2017-10-05] MEDS: FUROSEMIDE 20 MG TABLET PER TUBE SCH ×2 (10:32→21:36)
[2017-10-05] MEDS: FAMOTIDINE 20 MG TABLET PER TUBE SCH ×2 (10:33→18:32)
[2017-10-05] MEDS: predniSONE 10 MG TABLET PER TUBE SCH (10:33)
[2017-10-05] MEDS: LACTOBACILLUS RHAMNOSUS GG CAPSULE PER TUBE SCH (10:33)
[2017-10-05] MEDS: POTASSIUM CHLORIDE 10 MEQ TABLET PO SCH (10:33)
[2017-10-05] MEDS: AZITHROMYCIN INJ 500 MG in SODIUM CHLORIDE 0.9% 250 ML IV SCH (19:50)
[2017-10-05] MEDS: cefTRIAXone 1,000 MG in SYRINGE 1 EACH IV SCH (21:50)
[2017-10-06] MEDS: ALBUTEROL/IPRATROPIUM 3 ML NEB RESP TX SCH ×4 (00:42→19:35)
[2017-10-06] MEDS: DILTIAZEM 60 MG TABLET PO SCH ×4 (03:58→21:07)
[2017-10-06 04:33] LABS: Basophils % 0.1 % (0.0-0.8); Eosinophils % 0.1 % (0.00-10.9); Hematocrit 23.8 VOL% (35.7-47.0); Hemoglobin 7.4 GM/DL (12.0-16.0); Immature Granulocytes % 0.4 %; Immature Granulocytes Absolute 0.04 #; Lymphocytes # 0.8 10*3/uL (1.4-4.0); Lymphocytes % 8.7 % (21.3-54.2); Mean Corpuscular HGB Conc 31.1 GM/DL (32-36); Mean Corpuscular Hemoglobin 27 PG (27-34); Mean Corpuscular Volume 86.5 FL (87-102); Mean Platelet Volume 11.6 FL (9.6-12.0); Monocytes # 0.8 10*3/uL (0.11-0.8); Monocytes % 8.1 % (1.7-12.7); NRBC # 0.02 10*3/uL; Neutrophils # 7.7 10*3/uL (1.4-7.4); Neutrophils % 82.6 % (38.7-73.9); Platelet Count 276 T/CUMM (130-400); Red Blood Count 2.75 MC/CUMM (3.8-5.5); Red Cell Distribution Width 16.7 % (9.3-17.3); White Blood Count 9.3 T/CUMM (4-12)
[2017-10-06 05:16] LABS: Calcium 8.9 MG/DL (8.5-10.1); Magnesium 3.4 MG/DL (1.8-2.4); Osmolality,Calculated 297.7 MOS/KG (273-304); Potassium 4.2 MMOL/L (3.5-5.1)
[2017-10-06] MEDS: HEPARIN 5,000 UNIT/1 ML VIAL SUBCUT SCH ×3 (05:28→21:07)
[2017-10-06 05:30] LABS: Free T4 (Free Thyroxine) 1.04 NG/DL (0.76-1.46); Thyroid Stimulating Hormone 1.2 uIU/ml (0.358-3.74)
[2017-10-06] MEDS: INSULIN REGULAR 100 UNIT/ML SUBCUT SCH ×4 (08:52→23:15)
[2017-10-06] MEDS: FAMOTIDINE 20 MG TABLET PER TUBE SCH ×2 (14:35→16:14)
[2017-10-06] MEDS: MULTIVITAMIN (CENTRUM) TABLET PER TUBE SCH (16:13)
[2017-10-06] MEDS: predniSONE 10 MG TABLET PER TUBE SCH (16:14)
[2017-10-06] MEDS: FUROSEMIDE 20 MG TABLET PER TUBE SCH ×2 (16:14→21:06)
[2017-10-06] MEDS: CLOPIDOGREL 75 MG TABLET PER TUBE SCH (16:14)
[2017-10-06] MEDS: LACTOBACILLUS RHAMNOSUS GG CAPSULE PER TUBE SCH (16:14)
[2017-10-06] MEDS: POTASSIUM CHLORIDE 10 MEQ TABLET PO SCH (16:14)
[2017-10-06] MEDS: ESCITALOPRAM 10 MG TABLET PER TUBE SCH (16:14)
[2017-10-06] MEDS: AZITHROMYCIN 250 MG TABLET PO SCH (21:07)
[2017-10-06] MEDS: cefTRIAXone 1,000 MG in SYRINGE 1 EACH IV SCH (21:07)
[2017-10-07] MEDS: ALBUTEROL/IPRATROPIUM 3 ML NEB RESP TX SCH ×4 (01:29→18:59)
[2017-10-07] MEDS: DILTIAZEM 60 MG TABLET PO SCH ×4 (03:42→20:47)
[2017-10-07] MEDS: HEPARIN 5,000 UNIT/1 ML VIAL SUBCUT SCH ×3 (04:59→20:47)
[2017-10-07 05:46] LABS: Basophils % 0.1 % (0.0-0.8); Eosinophils % 0.1 % (0.00-10.9); Hematocrit 24.6 VOL% (35.7-47.0); Hemoglobin 7.6 GM/DL (12.0-16.0); Immature Granulocytes % 0.4 %; Immature Granulocytes Absolute 0.04 #; Lymphocytes # 0.7 10*3/uL (1.4-4.0); Lymphocytes % 8.1 % (21.3-54.2); Mean Corpuscular HGB Conc 30.9 GM/DL (32-36); Mean Corpuscular Hemoglobin 27 PG (27-34); Mean Corpuscular Volume 86.6 FL (87-102); Mean Platelet Volume 11.2 FL (9.6-12.0); Monocytes # 0.7 10*3/uL (0.11-0.8); Monocytes % 8.1 % (1.7-12.7); NRBC # 0.02 10*3/uL; Neutrophils # 7.5 10*3/uL (1.4-7.4); Neutrophils % 83.2 % (38.7-73.9); Platelet Count 307 T/CUMM (130-400); Red Blood Count 2.84 MC/CUMM (3.8-5.5); Red Cell Distribution Width 16.6 % (9.3-17.3)
[2017-10-07 06:18] LABS: Magnesium 2.9 MG/DL (1.8-2.4); Osmolality,Calculated 292.4 MOS/KG (273-304); Potassium 4.5 MMOL/L (3.5-5.1)
[2017-10-07] MEDS: fentaNYL 25 MCG/HR PATCH TRANSDERM SCH (08:18)
[2017-10-07] MEDS: INSULIN REGULAR 100 UNIT/ML SUBCUT SCH ×4 (08:18→20:46)
[2017-10-07] MEDS: MULTIVITAMIN (CENTRUM) TABLET PER TUBE SCH (08:19)
[2017-10-07] MEDS: FUROSEMIDE 20 MG TABLET PER TUBE SCH ×2 (08:19→20:48)
[2017-10-07] MEDS: ESCITALOPRAM 10 MG TABLET PER TUBE SCH (08:19)
[2017-10-07] MEDS: POTASSIUM CHLORIDE 10 MEQ TABLET PO SCH (08:20)
[2017-10-07] MEDS: LACTOBACILLUS RHAMNOSUS GG CAPSULE PER TUBE SCH (08:20)
[2017-10-07] MEDS: FAMOTIDINE 20 MG TABLET PER TUBE SCH ×2 (08:30→18:19)
[2017-10-07] MEDS: CLOPIDOGREL 75 MG TABLET PER TUBE SCH (08:30)
[2017-10-07] MEDS: predniSONE 10 MG TABLET PER TUBE SCH (08:30)
[2017-10-07 15:51] LABS: PT Patient Result 10.4 SECS; Partial Thromboplastin Time 28.8 SECS (0-40)
[2017-10-07] MEDS: AZITHROMYCIN 250 MG TABLET PO SCH (20:47)
[2017-10-07] MEDS: cefTRIAXone 1,000 MG in SYRINGE 1 EACH IV SCH (20:48)
[2017-10-08] MEDS: ALBUTEROL/IPRATROPIUM 3 ML NEB RESP TX SCH ×4 (01:24→19:58)
[2017-10-08] MEDS: DILTIAZEM 60 MG TABLET PO SCH ×4 (04:24→20:34)
[2017-10-08] MEDS: HEPARIN 5,000 UNIT/1 ML VIAL SUBCUT SCH ×3 (04:24→20:26)
[2017-10-08] MEDS: INSULIN REGULAR 100 UNIT/ML SUBCUT SCH ×4 (09:36→21:05)
[2017-10-08] MEDS: FAMOTIDINE 20 MG TABLET PER TUBE SCH ×2 (09:36→17:23)
[2017-10-08] MEDS: ASCORBIC ACID 500 MG TABLET PEG SCH (09:37)
[2017-10-08] MEDS: FUROSEMIDE 20 MG TABLET PER TUBE SCH ×2 (09:37→20:27)
[2017-10-08] MEDS: MULTIVITAMIN (CENTRUM) TABLET PER TUBE SCH (09:37)
[2017-10-08] MEDS: predniSONE 10 MG TABLET PER TUBE SCH (09:37)
[2017-10-08] MEDS: LACTOBACILLUS RHAMNOSUS GG CAPSULE PER TUBE SCH (09:37)
[2017-10-08] MEDS: POTASSIUM CHLORIDE 10 MEQ TABLET PO SCH (09:37)
[2017-10-08] MEDS: ESCITALOPRAM 10 MG TABLET PER TUBE SCH (09:37)
[2017-10-08] MEDS: NYSTATIN 500,000 UNIT/5 ML UDCUP SWISH/SWAL SCH ×4 (09:59→20:27)
[2017-10-08] MEDS: ZINC SULFATE 220 MG CAPSULE PEG SCH (09:59)
[2017-10-08] MEDS ORDERED: POLYETHYLENE GLYCOL POWDER 17 GM PACK PO PRN (10:11)
[2017-10-08] MEDS: cefTRIAXone 1,000 MG in SYRINGE 1 EACH IV SCH (20:25)
[2017-10-08] MEDS: AZITHROMYCIN 250 MG TABLET PO SCH (20:26)
[2017-10-09] MEDS: ALBUTEROL/IPRATROPIUM 3 ML NEB RESP TX SCH ×4 (01:14→19:40)
[2017-10-09 04:43] LABS: Basophils % 0.1 % (0.0-0.8); Eosinophils # 0.1 10*3/uL (0.0-0.87); Eosinophils % 0.6 % (0.00-10.9); Hematocrit 23.6 VOL% (35.7-47.0); Hemoglobin 7.3 GM/DL (12.0-16.0); Immature Granulocytes % 0.5 %; Immature Granulocytes Absolute 0.05 #; Lymphocytes # 1.3 10*3/uL (1.4-4.0); Lymphocytes % 13.5 % (21.3-54.2); Mean Corpuscular HGB Conc 30.9 GM/DL (32-36); Mean Corpuscular Hemoglobin 26 PG (27-34); Mean Corpuscular Volume 85.2 FL (87-102); Mean Platelet Volume 11.9 FL (9.6-12.0); Monocytes # 0.8 10*3/uL (0.11-0.8); Monocytes % 7.9 % (1.7-12.7); Neutrophils # 7.4 10*3/uL (1.4-7.4); Neutrophils % 77.4 % (38.7-73.9); Platelet Count 323 T/CUMM (130-400); Red Blood Count 2.77 MC/CUMM (3.8-5.5); Red Cell Distribution Width 16.8 % (9.3-17.3); White Blood Count 9.5 T/CUMM (4-12)
[2017-10-09 04:47] LABS: PT Patient Result 10.2 SECS
[2017-10-09 04:59] LABS: Calcium 9.4 MG/DL (8.5-10.1); Magnesium 3.3 MG/DL (1.8-2.4); Osmolality,Calculated 292.9 MOS/KG (273-304); Potassium 5.2 MMOL/L (3.5-5.1)
[2017-10-09] MEDS: DILTIAZEM 60 MG TABLET PO SCH ×4 (05:57→23:27)
[2017-10-09] MEDS: HEPARIN 5,000 UNIT/1 ML VIAL SUBCUT SCH ×3 (05:58→23:33)
[2017-10-09] MEDS: INSULIN REGULAR 100 UNIT/ML SUBCUT SCH ×3 (10:32→17:14)
[2017-10-09] MEDS: LACTOBACILLUS RHAMNOSUS GG CAPSULE PER TUBE SCH (10:34)
[2017-10-09] MEDS: MULTIVITAMIN (CENTRUM) TABLET PER TUBE SCH (10:34)
[2017-10-09] MEDS: FUROSEMIDE 20 MG TABLET PER TUBE SCH ×2 (10:36→22:20)
[2017-10-09] MEDS: ESCITALOPRAM 10 MG TABLET PER TUBE SCH (10:36)
[2017-10-09] MEDS: POTASSIUM CHLORIDE 10 MEQ TABLET PO SCH (10:36)
[2017-10-09] MEDS: NYSTATIN 500,000 UNIT/5 ML UDCUP SWISH/SWAL SCH ×4 (10:37→22:25)
[2017-10-09] MEDS: ZINC SULFATE 220 MG CAPSULE PEG SCH (10:38)
[2017-10-09] MEDS: ASCORBIC ACID 500 MG TABLET PEG SCH (10:38)
[2017-10-09] MEDS: predniSONE 10 MG TABLET PER TUBE SCH (10:39)
[2017-10-09] MEDS: FAMOTIDINE 20 MG TABLET PER TUBE SCH ×2 (10:39→17:15)
[2017-10-09] MEDS ORDERED: SODIUM POLYSTYRENE SULFATE 15 GM/60 ML BOTTLE PO ONE (14:00)
[2017-10-09] MEDS: AZITHROMYCIN 250 MG TABLET PO SCH (22:20)
[2017-10-10] MEDS: ALBUTEROL/IPRATROPIUM 3 ML NEB RESP TX SCH ×4 (01:03→20:40)
[2017-10-10] MEDS: cefTRIAXone 1,000 MG in SYRINGE 1 EACH IV SCH (01:34)
[2017-10-10] MEDS: DILTIAZEM 60 MG TABLET PO SCH ×4 (04:53→21:28)
[2017-10-10] MEDS: INSULIN REGULAR 100 UNIT/ML SUBCUT SCH ×5 (04:54→21:27)
[2017-10-10 05:53] LABS: Basophils % 0.1 % (0.0-0.8); Eosinophils # 0.1 10*3/uL (0.0-0.87); Eosinophils % 0.7 % (0.00-10.9); Hematocrit 22.2 VOL% (35.7-47.0); Hemoglobin 7.2 GM/DL (12.0-16.0); Immature Granulocytes Absolute 0.08 #; Lymphocytes # 1.4 10*3/uL (1.4-4.0); Lymphocytes % 16.8 % (21.3-54.2); Mean Corpuscular HGB Conc 32.4 GM/DL (32-36); Mean Corpuscular Hemoglobin 27 PG (27-34); Mean Corpuscular Volume 82.8 FL (87-102); Mean Platelet Volume 12.2 FL (9.6-12.0); Monocytes # 0.7 10*3/uL (0.11-0.8); Monocytes % 8.9 % (1.7-12.7); Neutrophils # 5.9 10*3/uL (1.4-7.4); Neutrophils % 72.5 % (38.7-73.9); Platelet Count 229 T/CUMM (130-400); Red Blood Count 2.68 MC/CUMM (3.8-5.5); Red Cell Distribution Width 17.2 % (9.3-17.3); White Blood Count 8.2 T/CUMM (4-12)
[2017-10-10 06:28] LABS: Calcium 9.6 MG/DL (8.5-10.1); Magnesium 3.4 MG/DL (1.8-2.4); Osmolality,Calculated 298.7 MOS/KG (273-304); Potassium 5.1 MMOL/L (3.5-5.1)
[2017-10-10] MEDS: HEPARIN 5,000 UNIT/1 ML VIAL SUBCUT SCH ×3 (10:41→23:44)
[2017-10-10] MEDS: FAMOTIDINE 20 MG TABLET PER TUBE SCH ×2 (11:06→16:08)
[2017-10-10] MEDS: ZINC SULFATE 220 MG CAPSULE PEG SCH (11:06)
[2017-10-10] MEDS: predniSONE 10 MG TABLET PER TUBE SCH (11:06)
[2017-10-10] MEDS: ASCORBIC ACID 500 MG TABLET PEG SCH (11:06)
[2017-10-10] MEDS: POTASSIUM CHLORIDE 10 MEQ TABLET PO SCH (11:07)
[2017-10-10] MEDS: NYSTATIN 500,000 UNIT/5 ML UDCUP SWISH/SWAL SCH ×4 (11:07→21:28)
[2017-10-10] MEDS: ESCITALOPRAM 10 MG TABLET PER TUBE SCH (11:07)
[2017-10-10] MEDS: LACTOBACILLUS RHAMNOSUS GG CAPSULE PER TUBE SCH (11:07)
[2017-10-10] MEDS: MULTIVITAMIN (CENTRUM) TABLET PER TUBE SCH (11:08)
[2017-10-10] MEDS: FUROSEMIDE 20 MG TABLET PER TUBE SCH ×2 (11:08→21:27)
[2017-10-10] MEDS: fentaNYL 25 MCG/HR PATCH TRANSDERM SCH (11:29)
[2017-10-10] MEDS ORDERED: HEPARIN 1,000 UNIT/1 ML VIAL ONE (12:42)
[2017-10-11] MEDS: ALBUTEROL/IPRATROPIUM 3 ML NEB RESP TX SCH ×4 (01:04→19:12)
[2017-10-11] MEDS: DILTIAZEM 60 MG TABLET PO SCH ×4 (03:24→22:28)
[2017-10-11 06:44] LABS: Basophils % 0.5 % (0.0-0.8); Eosinophils # 0.2 10*3/uL (0.0-0.87); Eosinophils % 2.6 % (0.00-10.9); Hematocrit 24.1 VOL% (35.7-47.0); Hemoglobin 7.4 GM/DL (12.0-16.0); Immature Granulocytes % 0.7 %; Immature Granulocytes Absolute 0.06 #; Lymphocytes # 1.5 10*3/uL (1.4-4.0); Lymphocytes % 18.1 % (21.3-54.2); Mean Corpuscular HGB Conc 30.7 GM/DL (32-36); Mean Corpuscular Hemoglobin 26 PG (27-34); Mean Corpuscular Volume 85.8 FL (87-102); Monocytes % 11.7 % (1.7-12.7); Neutrophils # 5.6 10*3/uL (1.4-7.4); Neutrophils % 66.4 % (38.7-73.9); Platelet Count 302 T/CUMM (130-400); Red Blood Count 2.81 MC/CUMM (3.8-5.5); Red Cell Distribution Width 17.1 % (9.3-17.3); White Blood Count 8.4 T/CUMM (4-12)
[2017-10-11 07:12] LABS: PT Patient Result 10.8 SECS; Partial Thromboplastin Time 27.8 SECS (0-40)
[2017-10-11 07:20] LABS: Calcium 8.8 MG/DL (8.5-10.1); Magnesium 2.8 MG/DL (1.8-2.4); Osmolality,Calculated 284.4 MOS/KG (273-304); Potassium 3.9 MMOL/L (3.5-5.1)
[2017-10-11] MEDS: INSULIN REGULAR 100 UNIT/ML SUBCUT SCH ×4 (08:08→22:27)
[2017-10-11] MEDS: HEPARIN 5,000 UNIT/1 ML VIAL SUBCUT SCH ×2 (08:10→16:39)
[2017-10-11] MEDS: LACTOBACILLUS RHAMNOSUS GG CAPSULE PER TUBE SCH (08:15)
[2017-10-11] MEDS: ZINC SULFATE 220 MG CAPSULE PEG SCH (08:15)
[2017-10-11] MEDS: MULTIVITAMIN (CENTRUM) TABLET PER TUBE SCH (08:15)
[2017-10-11] MEDS: POTASSIUM CHLORIDE 10 MEQ TABLET PO SCH (08:15)
[2017-10-11] MEDS: NYSTATIN 500,000 UNIT/5 ML UDCUP SWISH/SWAL SCH ×4 (08:17→22:27)
[2017-10-11] MEDS: FUROSEMIDE 20 MG TABLET PER TUBE SCH ×2 (08:17→22:03)
[2017-10-11] MEDS: ESCITALOPRAM 10 MG TABLET PER TUBE SCH (08:17)
[2017-10-11] MEDS: ASCORBIC ACID 500 MG TABLET PEG SCH (08:18)
[2017-10-11] MEDS: predniSONE 10 MG TABLET PER TUBE SCH (09:32)
[2017-10-11] MEDS: FAMOTIDINE 20 MG TABLET PER TUBE SCH ×2 (09:32→16:39)
[2017-10-12] MEDS: HEPARIN 5,000 UNIT/1 ML VIAL SUBCUT SCH (00:35)
[2017-10-12] MEDS: ALBUTEROL/IPRATROPIUM 3 ML NEB RESP TX SCH ×4 (00:44→19:18)
[2017-10-12] MEDS: DILTIAZEM 60 MG TABLET PO SCH ×4 (03:45→21:44)
[2017-10-12 07:05] LABS: Basophils % 0.5 % (0.0-0.8); Eosinophils # 0.1 10*3/uL (0.0-0.87); Eosinophils % 1.3 % (0.00-10.9); Hematocrit 26.4 VOL% (35.7-47.0); Hemoglobin 7.9 GM/DL (12.0-16.0); Immature Granulocytes % 0.5 %; Immature Granulocytes Absolute 0.04 #; Lymphocytes # 1.3 10*3/uL (1.4-4.0); Lymphocytes % 17.1 % (21.3-54.2); Mean Corpuscular HGB Conc 29.9 GM/DL (32-36); Mean Corpuscular Hemoglobin 26 PG (27-34); Mean Corpuscular Volume 86.3 FL (87-102); Mean Platelet Volume 11.5 FL (9.6-12.0); Monocytes # 0.9 10*3/uL (0.11-0.8); Monocytes % 12.1 % (1.7-12.7); Neutrophils # 5.2 10*3/uL (1.4-7.4); Neutrophils % 68.5 % (38.7-73.9); Platelet Count 310 T/CUMM (130-400); Red Blood Count 3.06 MC/CUMM (3.8-5.5); Red Cell Distribution Width 16.6 % (9.3-17.3); White Blood Count 7.6 T/CUMM (4-12)
[2017-10-12 07:31] LABS: Calcium 9.2 MG/DL (8.5-10.1); Magnesium 2.7 MG/DL (1.8-2.4); Potassium 3.7 MMOL/L (3.5-5.1)
[2017-10-12] MEDS: INSULIN REGULAR 100 UNIT/ML SUBCUT SCH ×4 (08:18→21:43)
[2017-10-12] MEDS: MULTIVITAMIN (CENTRUM) TABLET PER TUBE SCH ×2 (09:51→14:21)
[2017-10-12] MEDS: ESCITALOPRAM 10 MG TABLET PER TUBE SCH ×2 (09:52→14:20)
[2017-10-12] MEDS: ZINC SULFATE 220 MG CAPSULE PEG SCH ×2 (09:52→14:20)
[2017-10-12] MEDS: NYSTATIN 500,000 UNIT/5 ML UDCUP SWISH/SWAL SCH ×4 (09:52→21:43)
[2017-10-12] MEDS: LACTOBACILLUS RHAMNOSUS GG CAPSULE PER TUBE SCH ×2 (09:52→14:20)
[2017-10-12] MEDS: FAMOTIDINE 20 MG TABLET PER TUBE SCH ×3 (09:52→16:51)
[2017-10-12] MEDS: POTASSIUM CHLORIDE 10 MEQ TABLET PO SCH ×2 (09:52→14:20)
[2017-10-12] MEDS: predniSONE 10 MG TABLET PER TUBE SCH ×2 (09:52→14:20)
[2017-10-12] MEDS: ASCORBIC ACID 500 MG TABLET PEG SCH ×2 (09:52→14:20)
[2017-10-12] MEDS: FUROSEMIDE 20 MG TABLET PER TUBE SCH ×3 (09:52→21:44)
[2017-10-12 15:54] LABS: Total Protein,Pleural Fluid 3.7 G/DL
[2017-10-12 16:19] LABS: Lymphocytes,Pleural Fluid 76 %; Monocytes,Pleural Fluid 1 %; Neutrophils,Pleural Fluid 23 %; RBC,Pleural Fluid 7822 T/CUMM
[2017-10-13] MEDS: ALBUTEROL/IPRATROPIUM 3 ML NEB RESP TX SCH ×3 (01:34→12:15)
[2017-10-13 02:40] LABS: Basophils % 0.2 % (0.0-0.8); Eosinophils % 0.3 % (0.00-10.9); Hematocrit 25.7 VOL% (35.7-47.0); Hemoglobin 7.7 GM/DL (12.0-16.0); Immature Granulocytes % 0.4 %; Immature Granulocytes Absolute 0.04 #; Lymphocytes # 0.9 10*3/uL (1.4-4.0); Lymphocytes % 9.8 % (21.3-54.2); Mean Corpuscular Hemoglobin 26 PG (27-34); Mean Corpuscular Volume 86.8 FL (87-102); Mean Platelet Volume 11.3 FL (9.6-12.0); Monocytes # 0.7 10*3/uL (0.11-0.8); Monocytes % 7.7 % (1.7-12.7); Neutrophils # 7.3 10*3/uL (1.4-7.4); Neutrophils % 81.6 % (38.7-73.9); Platelet Count 325 T/CUMM (130-400); Red Blood Count 2.96 MC/CUMM (3.8-5.5); Red Cell Distribution Width 16.6 % (9.3-17.3); White Blood Count 8.9 T/CUMM (4-12)
[2017-10-13 03:09] LABS: Calcium 9.5 MG/DL (8.5-10.1); Magnesium 2.9 MG/DL (1.8-2.4); Osmolality,Calculated 289.1 MOS/KG (273-304); Potassium 4.2 MMOL/L (3.5-5.1)
[2017-10-13] MEDS: DILTIAZEM 60 MG TABLET PO SCH ×3 (03:42→15:49)
[2017-10-13] MEDS: INSULIN REGULAR 100 UNIT/ML SUBCUT SCH ×2 (12:42→13:43)
[2017-10-13] MEDS: MULTIVITAMIN (CENTRUM) TABLET PER TUBE SCH (13:33)
[2017-10-13] MEDS: LACTOBACILLUS RHAMNOSUS GG CAPSULE PER TUBE SCH (13:34)
[2017-10-13] MEDS: fentaNYL 25 MCG/HR PATCH TRANSDERM SCH (13:35)
[2017-10-13] MEDS: POTASSIUM CHLORIDE 10 MEQ TABLET PO SCH (13:38)
[2017-10-13] MEDS: FUROSEMIDE 20 MG TABLET PER TUBE SCH (13:38)
[2017-10-13] MEDS: ESCITALOPRAM 10 MG TABLET PER TUBE SCH (13:38)
[2017-10-13] MEDS: NYSTATIN 500,000 UNIT/5 ML UDCUP SWISH/SWAL SCH ×2 (13:39)
[2017-10-13] MEDS: ASCORBIC ACID 500 MG TABLET PEG SCH (13:40)
[2017-10-13] MEDS: ZINC SULFATE 220 MG CAPSULE PEG SCH (13:40)
[2017-10-13] MEDS: FAMOTIDINE 20 MG TABLET PER TUBE SCH (13:41)
[2017-10-13] MEDS: predniSONE 10 MG TABLET PER TUBE SCH (13:42)
[2017-10-13] MEDS: CLOPIDOGREL 75 MG TABLET PER TUBE SCH (13:42)
[2017-10-13 13:43] VITALS: BP 111/58
== END 2017-10-13 15:46 | DRG 391 ==
LOC: EDBD → EDUNIT# → N.ED 13:30 → N.EDINP 17:37 → SUATTDRO 17:38 → N.2E 18:58
PROVIDERS: ADMIT Internal Medicine; ATTEND Internal Medicine

== ENCOUNTER 2018-11-04 22:03 | Inpatient (IN) ==
[2018-11-04 23:40] LABS: Basophils % 0.1 % (0.0-0.8); Eosinophils % 0.1 % (0.00-10.9); Hematocrit 23.3 VOL% (35.7-47.0); Hemoglobin 6.8 GM/DL (12.0-16.0); Immature Granulocytes % 0.8 %; Immature Granulocytes Absolute 0.07 #; Lymphocytes # 1.4 10*3/uL (1.4-4.0); Lymphocytes % 15.6 % (21.3-54.2); Mean Corpuscular HGB Conc 29.2 GM/DL (32-36); Mean Corpuscular Hemoglobin 27 PG (27-34); Mean Platelet Volume 11.6 FL (9.6-12.0); Monocytes # 0.6 10*3/uL (0.11-0.8); NRBC # 0.08 10*3/uL; Neutrophils # 7.1 10*3/uL (1.4-7.4); Neutrophils % 77.4 % (38.7-73.9); Platelet Count 327 T/CUMM (130-400); Red Blood Count 2.56 MC/CUMM (3.8-5.5); Red Cell Distribution Width 17.3 % (9.3-17.3); White Blood Count 9.1 T/CUMM (4-12)
[2018-11-05 00:05] LABS: Alanine Aminotransferase 22 U/L (13-56); Albumin 2.2 G/DL (3.4-5.0); Alkaline Phosphatase 194 U/L (45-117); Aspartate Amino Transferase 16 U/L (0-37); Bilirubin,Total < 0.39 MG/DL (0.2-1.0); Blood Urea Nitrogen 68 MG/DL (7-18); Calcium 9.7 MG/DL (8.5-10.1); Glucose 200 MG/DL (74-106); Osmolality,Calculated 295.1 MOS/KG (273-304); Potassium 4.2 MMOL/L (3.5-5.1); Sodium 135 MMOL/L (136-145); Total Protein 6.9 G/DL (6.4-8.3)
[2018-11-05] MEDS ORDERED: ONDANSETRON 4 MG/2 ML VIAL IV STA ×2 (00:09→03:23)
[2018-11-05] MEDS ORDERED: ONDANSETRON 4 MG/2 ML VIAL ONE (00:10)
[2018-11-05] MEDS ORDERED: SODIUM CHLORIDE 0.9% 1,000 ML IV PRN ×2 (02:08→11:58)
[2018-11-05] MEDS ORDERED: metroNIDAZOLE INJ 500 MG in PREMIX 1 EACH IV SCH ×2 (03:30→05:00)
[2018-11-05] MEDS: ALBUTEROL/IPRATROPIUM 3 ML NEB RESP TX SCH ×5 (03:43→20:13)
[2018-11-05] MEDS ORDERED: POLYETHYLENE GLYCOL 3350/ELECTROLYTES 4,000 ML BOTTLE PEG ONE (07:07)
[2018-11-05] MEDS: DILTIAZEM 60 MG TABLET PO SCH ×4 (07:18→22:05)
[2018-11-05] MEDS ORDERED: BISACODYL 5 MG TABLET PO SCH (07:30)
[2018-11-05] MEDS ORDERED: LACTOBACILLUS RHAMNOSUS GG CAPSULE PER TUBE SCH (09:00)
[2018-11-05] MEDS: BISACODYL 5 MG TABLET PEG SCH ×2 (09:01→16:00)
[2018-11-05] MEDS: ESCITALOPRAM 10 MG TABLET PER TUBE SCH (09:01)
[2018-11-05] MEDS: FUROSEMIDE 20 MG TABLET PER TUBE SCH ×2 (09:02→22:08)
[2018-11-05] MEDS: fentaNYL 25 MCG/HR PATCH TRANSDERM SCH (09:02)
[2018-11-05] MEDS: predniSONE 10 MG TABLET PER TUBE SCH (09:03)
[2018-11-05] MEDS ORDERED: FAMOTIDINE 20 MG TABLET PER TUBE SCH (09:30)
[2018-11-05] MEDS: PANTOPRAZOLE 40 MG VIAL IV SCH ×2 (10:54→22:05)
[2018-11-05] MEDS: VANCOMYCIN 50 MG/ML 60 ML/BOTTLE PO SCH ×2 (12:55→21:50)
[2018-11-06] MEDS: BISACODYL 5 MG TABLET PEG SCH (00:30)
[2018-11-06] MEDS: VANCOMYCIN 50 MG/ML 60 ML/BOTTLE PO SCH ×4 (00:30→17:21)
[2018-11-06] MEDS: ALBUTEROL/IPRATROPIUM 3 ML NEB RESP TX SCH ×7 (02:20→23:40)
[2018-11-06] MEDS: DILTIAZEM 60 MG TABLET PO SCH ×4 (03:00→21:46)
[2018-11-06 06:05] LABS: Calcium 8.8 MG/DL (8.5-10.1); Osmolality,Calculated 285.5 MOS/KG (273-304); Potassium 3.8 MMOL/L (3.5-5.1)
[2018-11-06 06:10] LABS: Basophils # 0.1 10*3/uL (0.0-0.2); Basophils % 1.1 % (0.0-0.8); Eosinophils # 0.1 10*3/uL (0.0-0.87); Eosinophils % 0.6 % (0.00-10.9); Hematocrit 31.4 VOL% (35.7-47.0); Immature Granulocytes % 1.8 %; Immature Granulocytes Absolute 0.15 #; Lymphocytes # 1.1 10*3/uL (1.4-4.0); Lymphocytes % 12.8 % (21.3-54.2); Mean Corpuscular HGB Conc 30.9 GM/DL (32-36); Mean Corpuscular Hemoglobin 28 PG (27-34); Mean Corpuscular Volume 89.2 FL (87-102); Monocytes # 1.1 10*3/uL (0.11-0.8); Monocytes % 12.7 % (1.7-12.7); NRBC # 0.27 10*3/uL; Neutrophils # 6.1 10*3/uL (1.4-7.4); Platelet Count 286 T/CUMM (130-400); Red Cell Distribution Width 16.7 % (9.3-17.3); White Blood Count 8.5 T/CUMM (4-12)
[2018-11-06 06:17] LABS: Hemoglobin 9.7 GM/DL (12.0-16.0); Red Blood Count 3.52 MC/CUMM (3.8-5.5)
[2018-11-06 06:35] LABS: Band Neutrophils 6 % (0-10); Hypochromasia 1+; Lymphocytes 8 % (20-55); Nucleated Red Blood Cells 4 (0-5); Platelet Estimate Adequate; Segmented Neutrophils 73 % (50-85); Total Cells Counted 100
[2018-11-06] MEDS ORDERED: GLUCAGON 1 MG VIAL IM PRN (08:44)
[2018-11-06] MEDS ORDERED: DEXTROSE 50% 25 GM/50 ML SYRINGE IV PRN (08:44)
[2018-11-06] MEDS ORDERED: PROPOFOL 200 MG/20 ML VIAL IV ONE (10:00)
[2018-11-06] MEDS ORDERED: LIDOCAINE 100 MG/5 ML SYRINGE ONE (10:00)
[2018-11-06] MEDS ORDERED: PHENYLEPHRINE 1 MG/10 ML SYRINGE IV ONE (10:00)
[2018-11-06] MEDS: predniSONE 10 MG TABLET PER TUBE SCH (10:37)
[2018-11-06] MEDS: ESCITALOPRAM 10 MG TABLET PER TUBE SCH (10:37)
[2018-11-06] MEDS: FUROSEMIDE 20 MG TABLET PER TUBE SCH ×2 (10:38→21:47)
[2018-11-06] MEDS: PANTOPRAZOLE 40 MG VIAL IV SCH ×2 (10:38→21:47)
[2018-11-06] MEDS: COLLAGENASE OINT 30 GM TUBE TOP SCH (14:37)
[2018-11-06] MEDS: INSULIN LISPRO 100 UNIT/ML SUBCUT SCH ×2 (14:55→18:30)
[2018-11-06] MEDS ORDERED: KETAMINE 500 MG/10 ML VIAL ONE (15:06)
[2018-11-07] MEDS: VANCOMYCIN 50 MG/ML 60 ML/BOTTLE PO SCH ×4 (00:08→18:39)
[2018-11-07] MEDS: INSULIN LISPRO 100 UNIT/ML SUBCUT SCH ×4 (00:08→18:39)
[2018-11-07] MEDS: ALBUTEROL/IPRATROPIUM 3 ML NEB RESP TX SCH ×6 (03:03→23:56)
[2018-11-07] MEDS: DILTIAZEM 60 MG TABLET PO SCH ×4 (03:15→22:23)
[2018-11-07 05:38] LABS: Basophils % 0.4 % (0.0-0.8); Eosinophils % 0.1 % (0.00-10.9); Hematocrit 27.5 VOL% (35.7-47.0); Hemoglobin 8.4 GM/DL (12.0-16.0); Immature Granulocytes % 1.5 %; Immature Granulocytes Absolute 0.12 #; Lymphocytes # 1.2 10*3/uL (1.4-4.0); Lymphocytes % 14.6 % (21.3-54.2); Mean Corpuscular HGB Conc 30.5 GM/DL (32-36); Mean Corpuscular Hemoglobin 27 PG (27-34); Mean Corpuscular Volume 89.6 FL (87-102); Mean Platelet Volume 11.7 FL (9.6-12.0); Monocytes # 0.8 10*3/uL (0.11-0.8); Monocytes % 10.5 % (1.7-12.7); NRBC # 0.21 10*3/uL; Neutrophils # 5.9 10*3/uL (1.4-7.4); Neutrophils % 72.9 % (38.7-73.9); Platelet Count 251 T/CUMM (130-400); Red Blood Count 3.07 MC/CUMM (3.8-5.5)
[2018-11-07 06:14] LABS: Hypochromasia 1+; Macrocytosis Slight; Platelet Estimate Adequate; Polychromasia Slight
[2018-11-07] MEDS: ESCITALOPRAM 10 MG TABLET PER TUBE SCH (10:07)
[2018-11-07] MEDS: FUROSEMIDE 20 MG TABLET PER TUBE SCH ×2 (10:07→22:23)
[2018-11-07] MEDS: PANTOPRAZOLE 40 MG VIAL IV SCH ×2 (10:07→22:23)
[2018-11-07] MEDS: predniSONE 10 MG TABLET PER TUBE SCH (10:07)
[2018-11-07] MEDS: COLLAGENASE OINT 30 GM TUBE TOP SCH (10:08)
[2018-11-07] MEDS ORDERED: INSULIN GLARGINE 100 UNIT/ML SUBCUT SCH (21:00)
[2018-11-08] MEDS: INSULIN LISPRO 100 UNIT/ML SUBCUT SCH ×3 (01:29→12:28)
[2018-11-08] MEDS: VANCOMYCIN 50 MG/ML 60 ML/BOTTLE PO SCH ×3 (02:33→12:28)
[2018-11-08] MEDS: DILTIAZEM 60 MG TABLET PO SCH ×3 (02:34→16:46)
[2018-11-08] MEDS: ALBUTEROL/IPRATROPIUM 3 ML NEB RESP TX SCH ×4 (03:02→15:22)
[2018-11-08 06:06] LABS: Basophils % 0.4 % (0.0-0.8); Eosinophils % 0.1 % (0.00-10.9); Hematocrit 28.4 VOL% (35.7-47.0); Hemoglobin 8.7 GM/DL (12.0-16.0); Immature Granulocytes % 1.1 %; Lymphocytes # 1.3 10*3/uL (1.4-4.0); Lymphocytes % 14.3 % (21.3-54.2); Mean Corpuscular HGB Conc 30.6 GM/DL (32-36); Mean Corpuscular Hemoglobin 28 PG (27-34); Mean Corpuscular Volume 90.2 FL (87-102); Mean Platelet Volume 11.5 FL (9.6-12.0); Monocytes # 0.9 10*3/uL (0.11-0.8); NRBC # 0.23 10*3/uL; Neutrophils # 6.7 10*3/uL (1.4-7.4); Neutrophils % 74.1 % (38.7-73.9); Platelet Count 238 T/CUMM (130-400); Red Blood Count 3.15 MC/CUMM (3.8-5.5); Red Cell Distribution Width 17.2 % (9.3-17.3)
[2018-11-08 06:18] LABS: PT Patient Result 10.7 SECS
[2018-11-08 08:03] LABS: Anisocytosis 1+; Band Neutrophils 24 % (0-10); Lymphocytes 16 % (20-55); Metamyelocytes 2 %; Nucleated Red Blood Cells 3 (0-5); Platelet Estimate Normal; Segmented Neutrophils 51 % (50-85); Total Cells Counted 100
[2018-11-08 08:04] LABS: Basophilic Stippling Slight
[2018-11-08] MEDS ORDERED: FERROUS SULFATE 300 MG/5 ML UDCUP PO SCH (09:00)
[2018-11-08] MEDS ORDERED: predniSONE 20 MG TABLET PO SCH (09:30)
[2018-11-08] MEDS: fentaNYL 25 MCG/HR PATCH TRANSDERM SCH (10:30)
[2018-11-08] MEDS: ESCITALOPRAM 10 MG TABLET PER TUBE SCH (10:30)
[2018-11-08] MEDS: FUROSEMIDE 20 MG TABLET PER TUBE SCH (10:31)
[2018-11-08] MEDS: COLLAGENASE OINT 30 GM TUBE TOP SCH (10:34)
[2018-11-08] MEDS: PANTOPRAZOLE 40 MG VIAL IV SCH (10:34)
[2018-11-08 14:30] LABS: Myeloperoxidase Antibody < 0.2 U
[2018-11-08 16:04] VITALS: BP 85/60
[2018-11-08 22:16] LABS: Saccharomyces cerevisiae IgA 137.1 U; Saccharomyces cerevisiae, IgG 110.7 U
== END 2018-11-08 17:45 | DRG 385 ==
LOC: EDBD → EDUNIT# → N.ED 22:03 → N.EDINP 22:03 → SUATTDRO 11-05 02:06 → N.ICU 11-05 03:06 → N.5E 11-06 16:37
PROVIDERS: ADMIT Internal Medicine; ATTEND Internal Medicine Cardiovascular Disease
PROC: COLONBX (2018-11-06 09:35)